=== PATIENT | male | born 1970 | race Caucasian/White ===

== ENCOUNTER 2016-11-08 01:51 | Emergency (ER) | payer OTHER ==
[~2016-11-08] VITALS: Ht 175.3 cm; Wt 80.0 kg
[~2016-11-08 01:51] MED LIST: AMLO10TA55 PO; ASPI-556 PO; ASPI81 PO; AUD NEB; CLON.1 PO; FOLI0.8T2 PO; HEPA500017 SQ; PANT40TA25 PO; PERCT PO
[2016-11-08 01:58] VITALS: BP 155/90
== END 2016-11-08 03:53 | disposition home or self-care (01) ==
LOC: EMS 01:53
DX: K94.00 Colostomy complication, unspecified (principal); I11.0 Hypertensive heart disease with heart failure; I50.9 Heart failure, unspecified; Z79.82 Long term (current) use of aspirin
CPT/HCPCS: 99281; 99284

== ENCOUNTER 2016-11-16 12:40 | Emergency (ER) | payer OTHER ==
[~2016-11-16] VITALS: Ht 167.6 cm; Wt 78.0 kg
[2016-11-16 15:13] VITALS: BP 102/56
== END 2016-11-16 15:43 | disposition home or self-care (01) ==
LOC: EMS 12:42
DX: Z93.3 Colostomy status (principal); I13.2 Hypertensive heart and chronic kidney disease with heart failure and with stage 5 chronic kidney disease, or end stage renal disease; N18.6 End stage renal disease; I50.9 Heart failure, unspecified; G83.14 Monoplegia of lower limb affecting left nondominant side; Z99.2 Dependence on renal dialysis; Z79.82 Long term (current) use of aspirin
CPT/HCPCS: 99281

== ENCOUNTER 2016-12-12 21:35 | Emergency (ER) | payer OTHER ==
[~2016-12-12] VITALS: Ht 175.3 cm; Wt 79.5 kg
[2016-12-12 22:48] VITALS: BP 144/95
== END 2016-12-12 23:28 | disposition home or self-care (01) ==
LOC: EMS 21:38
DX: K94.03 Colostomy malfunction (principal); I11.0 Hypertensive heart disease with heart failure; I50.9 Heart failure, unspecified; Z79.82 Long term (current) use of aspirin
CPT/HCPCS: 99281

== ENCOUNTER 2017-01-12 23:28 | Emergency (ER) | payer OTHER ==
[~2017-01-12] VITALS: Ht 175.3 cm; Wt 79.5 kg
[2017-01-13 00:39] VITALS: BP 159/83
== END 2017-01-13 00:41 | disposition home or self-care (01) ==
LOC: EMS 23:30
DX: K94.00 Colostomy complication, unspecified (principal); I11.0 Hypertensive heart disease with heart failure; I50.9 Heart failure, unspecified; Z79.82 Long term (current) use of aspirin
CPT/HCPCS: 99281

== ENCOUNTER 2017-01-15 09:24 | Emergency (ER) | payer OTHER ==
[~2017-01-15] VITALS: Ht 175.3 cm; Wt 79.5 kg
[2017-01-15 09:32] VITALS: BP 117/76
== END 2017-01-15 11:01 | disposition left against medical advice (07) ==
LOC: EMS 09:25
DX: R10.9 Unspecified abdominal pain (principal); Z53.21 Procedure and treatment not carried out due to patient leaving prior to being seen by health care provider

== ENCOUNTER 2017-01-26 19:35 | Emergency (ER) | payer OTHER ==
[~2017-01-26] VITALS: Ht 175.3 cm; Wt 81.8 kg
[2017-01-26 21:16] VITALS: BP 128/100
== END 2017-01-26 21:27 | disposition home or self-care (01) ==
LOC: EMS 19:37
DX: Z93.3 Colostomy status (principal); I13.2 Hypertensive heart and chronic kidney disease with heart failure and with stage 5 chronic kidney disease, or end stage renal disease; N18.6 End stage renal disease; I50.9 Heart failure, unspecified; Z99.2 Dependence on renal dialysis; Z79.82 Long term (current) use of aspirin
CPT/HCPCS: 99281; 99284

== ENCOUNTER 2017-02-04 16:44 | Emergency (ER) | payer OTHER ==
[~2017-02-04] VITALS: Ht 175.3 cm; Wt 83.0 kg
[2017-02-04 18:01] VITALS: BP 149/66
== END 2017-02-04 18:06 | disposition home or self-care (01) ==
LOC: EMS 16:49
DX: Z93.3 Colostomy status (principal); Z43.2 Encounter for attention to ileostomy; I11.0 Hypertensive heart disease with heart failure; I50.9 Heart failure, unspecified; Z79.82 Long term (current) use of aspirin
CPT/HCPCS: 99281

== ENCOUNTER 2017-02-28 22:26 | Emergency (ER) | payer OTHER ==
[~2017-02-28] VITALS: Ht 175.3 cm; Wt 79.5 kg
[~2017-02-28 22:26] MED LIST changes: -ASPI81 PO
[2017-02-28 23:36] VITALS: BP 159/103
== END 2017-03-01 01:08 | disposition left against medical advice (07) ==
LOC: EMS 22:28
DX: Z93.3 Colostomy status (principal); F17.210 Nicotine dependence, cigarettes, uncomplicated; I13.2 Hypertensive heart and chronic kidney disease with heart failure and with stage 5 chronic kidney disease, or end stage renal disease; N18.6 End stage renal disease; I50.9 Heart failure, unspecified; F12.90 Cannabis use, unspecified, uncomplicated; Z99.2 Dependence on renal dialysis; Z53.21 Procedure and treatment not carried out due to patient leaving prior to being seen by health care provider

== ENCOUNTER 2017-06-06 11:54 | Emergency (ER) | payer OTHER ==
[~2017-06-06] VITALS: Ht 172.7 cm; Wt 69.0 kg
[~2017-06-06 11:54] MED LIST changes: +CLON-570 PO; -CLON.1 PO
[2017-06-06] MEDS ORDERED: CefTRIAXone SODIUM 1 GM/VIAL IM ONE (13:15)
[2017-06-06] MEDS ORDERED: LIDOCAINE HCL/PF 1% 2 ML VIAL IM ONE (13:15)
[2017-06-06] MEDS ORDERED: SILVER SULFADIAZINE 1% 25 GM CREAM TP ONE (13:15)
[2017-06-06 14:05] VITALS: BP 148/72
== END 2017-06-06 14:05 | disposition home or self-care (01) ==
LOC: EMS 12:08
DX: T24.201D Burn of second degree of unspecified site of right lower limb, except ankle and foot, subsequent encounter (principal); I13.2 Hypertensive heart and chronic kidney disease with heart failure and with stage 5 chronic kidney disease, or end stage renal disease; N18.6 End stage renal disease; I50.9 Heart failure, unspecified; L08.9 Local infection of the skin and subcutaneous tissue, unspecified; L03.115 Cellulitis of right lower limb; F12.90 Cannabis use, unspecified, uncomplicated; Z99.2 Dependence on renal dialysis; Z79.82 Long term (current) use of aspirin; X10.0XXD Contact with hot drinks, subsequent encounter
CPT/HCPCS: 16020; 96372; 99284; J0696; J3490; Z7610

== ENCOUNTER 2017-06-12 06:21 | Emergency (ER) | payer OTHER ==
[~2017-06-12] VITALS: Ht 175.3 cm; Wt 80.0 kg
[~2017-06-12 06:21] MED LIST changes: -AUD NEB; -HEPA500017 SQ
[2017-06-12] MEDS ORDERED: SILVER SULFADIAZINE 1% 25 GM CREAM TP ONE (07:30)
[2017-06-12] MEDS ORDERED: HYDROCODONE/ACETAMINOPHEN 5-325 MG TABLET PO ONE (07:45)
[2017-06-12 09:50] VITALS: BP 140/92
== END 2017-06-12 09:53 | disposition home or self-care (01) ==
LOC: EMS 06:23
DX: Z48.00 Encounter for change or removal of nonsurgical wound dressing (principal); I13.2 Hypertensive heart and chronic kidney disease with heart failure and with stage 5 chronic kidney disease, or end stage renal disease; N18.6 End stage renal disease; F12.10 Cannabis abuse, uncomplicated; I50.9 Heart failure, unspecified; Z99.2 Dependence on renal dialysis
CPT/HCPCS: 73562; 99284; Z7610

== ENCOUNTER 2017-06-19 02:09 | Emergency (ER) | payer OTHER ==
[~2017-06-19] VITALS: Ht 175.3 cm; Wt 79.5 kg
[2017-06-19] MEDS ORDERED: SODIUM CHLORIDE 0.9% 250 ML IRRIG SOLUTION BOTTLE IRRIG ONE (02:45)
[2017-06-19] MEDS ORDERED: SILVER SULFADIAZINE 1% 25 GM CREAM TP ONE (02:45)
[2017-06-19] MEDS ORDERED: CLINDAMYCIN HCL 150 MG CAPSULE PO ONE (02:45)
[2017-06-19] MEDS ORDERED: POVIDONE-IODINE 10% 15 ML SOLUTION UD TP ONE (03:00)
[2017-06-19 03:12] VITALS: BP 146/91
== END 2017-06-19 04:31 | disposition home or self-care (01) ==
LOC: EMS 02:10
DX: T24.001D Burn of unspecified degree of unspecified site of right lower limb, except ankle and foot, subsequent encounter (principal); I13.2 Hypertensive heart and chronic kidney disease with heart failure and with stage 5 chronic kidney disease, or end stage renal disease; N18.6 End stage renal disease; I50.9 Heart failure, unspecified; F12.90 Cannabis use, unspecified, uncomplicated; Z99.2 Dependence on renal dialysis; Z79.82 Long term (current) use of aspirin; X08.8XXD Exposure to other specified smoke, fire and flames, subsequent encounter
CPT/HCPCS: 99284; Z7610

== ENCOUNTER 2017-06-28 16:49 | Inpatient (IN) | payer OTHER ==
[~2017-06-28] VITALS: Ht 175.3 cm; Wt 85.2 kg
[2017-06-28 19:14] LABS: BASOPHILS # (AUTO) 0.05 K/uL (0.00-0.20); BASOPHILS % (AUTO) 0.9 % (0.0-2.0); EOSINOPHILS # (AUTO) 0.05 K/uL (0.00-0.70); EOSINOPHILS % (AUTO) 0.72 % (1.0-6.0); HEMATOCRIT 45.8 % (41-53); HEMOGLOBIN 14.8 g/dL (13.5-17.5); LYMPHOCYTES # (AUTO) 0.7 K/uL (1.0-4.8); LYMPHOCYTES % (AUTO) 10.9 % (22.0-44.0); MEAN CORPUSCULAR HEMOGLOBIN 28.6 pg (26.0-34.0); MEAN CORPUSCULAR HGB CONC 32.2 G/dL (31.0-37.0); MEAN CORPUSCULAR VOLUME 89 fL (80-100); MONOCYTES # (AUTO) 0.6 K/uL (0.1-1.0); MONOCYTES % (AUTO) 9.4 % (2.0-9.0); NEUTROPHILS # (AUTO) 4.9 K/uL (1.8-7.7); NEUTROPHILS % (AUTO) 78.1 % (40.0-70.0); PLATELET COUNT (AUTO) 185 K/uL (150-450); RED BLOOD CELL COUNT(AUTO) 5.15 MIL/uL (4.50-5.90); RED CELL DISTRIBUTION WIDTH 23.2 % (11.5-14.5); WHITE BLOOD COUNT (AUTO) 6.3 K/uL (4.5-11.0)
[2017-06-28] MEDS ORDERED: HYDROmorphone 2 MG/ML SYRINGE IVP ONE (19:15)
[2017-06-28] MEDS ORDERED: ONDANSETRON HCL 4 MG/2 ML VIAL IVP ONE (19:15)
[2017-06-28] MEDS ORDERED: DiphenhydrAMINE HCL 50 MG/ML VIAL IVP ONE (19:15)
[2017-06-28 20:02] LABS: ANION GAP 16 mmol/L (8-16); CALCIUM, TOTAL 8.9 mg/dL (8.8-10.5); CARBON DIOXIDE 25 mmol/L (22-29); CHLORIDE 92 mmol/L (98-107); CREATININE 8.17 mg/dL (0.60-1.30); GLOMERULAR FILTR. RATE CALC 7 mL/min (>60); POTASSIUM 4.7 mmol/L (3.5-5.1); SODIUM SERUM 133 mmol/L (136-145); UREA NITROGEN, BLOOD 63 mg/dL (7-18)
[2017-06-28 20:07] LABS: ALBUMIN 3.1 g/dL (3.4-5.0); ASPARTATE AMINOTRANSFERASE 19 U/L (15-37); BILIRUBIN,TOTAL 1.3 mg/dL (0.1-1.0); TOTAL PROTEIN, SERUM 8.4 g/dL (6.4-8.2)
[2017-06-28] MEDS ORDERED: VANCOMYCIN HCL 1 GM/D5% WATER 200 ML IV ONE (20:15)
[2017-06-28 20:20] LABS: B-TYPE NATRIURETIC PEPTIDE > 5000 pg/mL (0-100)
[2017-06-28 20:22] LABS: ALANINE AMINOTRANSFERASE 17 U/L (12-78)
[2017-06-28] MEDS ORDERED: BISACODYL 10 MG RECTAL RECTAL SUPPOSITORY PR PRN (21:00)
[2017-06-28] MEDS ORDERED: ALBUTEROL SULFATE 2.5 MG/0.5 ML NEB SOLUTION NEB PRN (21:00)
[2017-06-28] MEDS ORDERED: ACETAMINOPHEN 325 MG TABLET PO PRN (21:00)
[2017-06-28] MEDS ORDERED: INSULIN ASPART 100 UNITS/ML SQ PRN (21:15)
[2017-06-28] MEDS ORDERED: DEXTROSE 50%-WATER 25 GM/50 ML SYRINGE IVP PRN (21:15)
[2017-06-28 22:09] LABS: RBC MORPHOLOGY COMMENT ABNORMAL RBC MORPH
[2017-06-28 22:10] VITALS: BP 163/101
[2017-06-28] MEDS: DOCUSATE SODIUM 100 MG CAPSULE PO SCH (22:42)
[2017-06-28] MEDS: HEPARIN SODIUM,PORCINE 5,000 UNITS/ML VIAL SQ SCH (22:51)
[2017-06-28] MEDS: OxyCODONE HCL/ACETAMINOPHEN 5-325 MG TABLET PO PRN (23:33)
[2017-06-29] MEDS: ONDANSETRON HCL 4 MG/2 ML VIAL IVP PRN ×2 (00:20→09:46)
[2017-06-29 04:45] VITALS: BP 159/115
[2017-06-29 05:40] VITALS: BP 159/102
[2017-06-29] MEDS: AmLODIPine BESYLATE 10 MG TABLET PO SCH ×2 (05:44→09:29)
[2017-06-29] MEDS: OxyCODONE HCL/ACETAMINOPHEN 5-325 MG TABLET PO PRN (05:45)
[2017-06-29 08:10] VITALS: BP 143/106
[2017-06-29] MEDS: DOCUSATE SODIUM 100 MG CAPSULE PO SCH ×2 (09:00→20:13)
[2017-06-29] MEDS: ASPIRIN 81 MG CHEWABLE TABLET PO SCH ×2 (09:00→09:30)
[2017-06-29] MEDS: VITAMIN B COMP/VIT C/FOLIC ACID CAPSULE PO SCH (09:29)
[2017-06-29] MEDS: PANTOPRAZOLE SODIUM 40 MG DR TABLET PO SCH (09:29)
[2017-06-29] MEDS: HEPARIN SODIUM,PORCINE 5,000 UNITS/ML VIAL SQ SCH ×2 (09:30→20:13)
[2017-06-29] MEDS: DiphenhydrAMINE HCL 25 MG CAPSULE PO PRN (09:33)
[2017-06-29 11:28] LABS: GLUCOSE,POINT OF CARE 112 MG/DL (70-110)
[2017-06-29 11:28] LABS: GLUCOSE,POINT OF CARE 104 MG/DL (70-110)
[2017-06-29] MEDS ORDERED: VITAMIN B COMP/VIT C/FOLIC ACID CAPSULE PO SCH (11:45)
[2017-06-29 12:08] VITALS: BP 159/100
[2017-06-29] MEDS: SEVELAMER CARBONATE 800 MG TABLET PO SCH ×2 (12:43→17:39)
[2017-06-29] MEDS: SILVER SULFADIAZINE 1% 25 GM CREAM TP SCH (12:44)
[2017-06-29] MEDS ORDERED: SODIUM CHLORIDE 0.9% 2,000 ML IV ONE (13:05)
[2017-06-29] MEDS ORDERED: MANNITOL 25%-12.5 GM/50 ML VIAL IVP PRN (14:45)
[2017-06-29] MEDS ORDERED: ALBUMIN HUMAN 25%-12.5GM/50ML IV BOTTLE IV PRN (14:45)
[2017-06-29] MEDS ORDERED: LIDOCAINE HCL/PF 1% 2 ML VIAL ID PRN (14:45)
[2017-06-29] MEDS ORDERED: DiphenhydrAMINE HCL 50 MG/ML VIAL IVP PRN (14:45)
[2017-06-29] MEDS ORDERED: DiphenhydrAMINE HCL 50 MG/ML VIAL IM ONE (16:37)
[2017-06-29] MEDS ORDERED: LIDOCAINE HCL/PF 1% 2 ML VIAL IM ONE (16:37)
[2017-06-29] MEDS: CINACALCET HCL 30 MG TABLET PO SCH (17:39)
[2017-06-29 19:32] VITALS: BP 136/82
[2017-06-29 23:37] VITALS: BP 146/106
[2017-06-30 05:08] VITALS: BP 131/102
[2017-06-30 07:53] VITALS: BP 136/99
[2017-06-30] MEDS: PANTOPRAZOLE SODIUM 40 MG DR TABLET PO SCH (07:54)
[2017-06-30] MEDS: ASPIRIN 81 MG CHEWABLE TABLET PO SCH ×2 (07:54→07:57)
[2017-06-30] MEDS: VITAMIN B COMP/VIT C/FOLIC ACID CAPSULE PO SCH (07:54)
[2017-06-30] MEDS: AmLODIPine BESYLATE 10 MG TABLET PO SCH (07:54)
[2017-06-30] MEDS: HEPARIN SODIUM,PORCINE 5,000 UNITS/ML VIAL SQ SCH ×2 (07:55→20:07)
[2017-06-30] MEDS: DOCUSATE SODIUM 100 MG CAPSULE PO SCH ×2 (07:56→20:07)
[2017-06-30] MEDS: SEVELAMER CARBONATE 800 MG TABLET PO SCH ×3 (07:56→17:43)
[2017-06-30] MEDS: SILVER SULFADIAZINE 1% 25 GM CREAM TP SCH (07:57)
[2017-06-30 11:38] VITALS: BP 157/100
[2017-06-30] MEDS ORDERED: CefTRIAXone 1 GM/DEXTROSE 50 ML IV SCH (14:00)
[2017-06-30] MEDS: DiphenhydrAMINE HCL 25 MG CAPSULE PO PRN (15:04)
[2017-06-30] MEDS: OxyCODONE HCL/ACETAMINOPHEN 5-325 MG TABLET PO PRN ×2 (15:04→21:05)
[2017-06-30 15:46] VITALS: BP 144/84
[2017-06-30] MEDS: CINACALCET HCL 30 MG TABLET PO SCH (17:42)
[2017-06-30 19:23] VITALS: BP 132/87
[2017-06-30] MEDS: DiphenhydrAMINE HCL 50 MG/ML VIAL IM PRN (21:03)
[2017-06-30 23:03] VITALS: BP 165/93
[2017-07-01] MEDS: DiphenhydrAMINE HCL 50 MG/ML VIAL IM PRN ×3 (03:43→16:48)
[2017-07-01 04:41] VITALS: BP 141/97
[2017-07-01 07:18] VITALS: BP 144/83
[2017-07-01 07:54] LABS: BASOPHILS # (AUTO) 0.02 K/uL (0.00-0.20); BASOPHILS % (AUTO) 0.4 % (0.0-2.0); EOSINOPHILS # (AUTO) 0.09 K/uL (0.00-0.70); EOSINOPHILS % (AUTO) 1.93 % (1.0-6.0); HEMATOCRIT 49.9 % (41-53); HEMOGLOBIN 15.7 g/dL (13.5-17.5); LYMPHOCYTES # (AUTO) 0.9 K/uL (1.0-4.8); LYMPHOCYTES % (AUTO) 18.1 % (22.0-44.0); MEAN CORPUSCULAR HGB CONC 31.4 G/dL (31.0-37.0); MEAN CORPUSCULAR VOLUME 92 fL (80-100); MONOCYTES # (AUTO) 0.7 K/uL (0.1-1.0); MONOCYTES % (AUTO) 15.5 % (2.0-9.0); PLATELET COUNT (AUTO) 176 K/uL (150-450); RED CELL DISTRIBUTION WIDTH 23.1 % (11.5-14.5); WHITE BLOOD COUNT (AUTO) 4.7 K/uL (4.5-11.0)
[2017-07-01 07:56] LABS: CALCIUM, TOTAL 7.9 mg/dL (8.8-10.5); CREATININE 8.13 mg/dL (0.60-1.30); POTASSIUM 5.3 mmol/L (3.5-5.1)
[2017-07-01] MEDS: SEVELAMER CARBONATE 800 MG TABLET PO SCH ×3 (08:01→18:03)
[2017-07-01] MEDS: AmLODIPine BESYLATE 10 MG TABLET PO SCH (08:02)
[2017-07-01] MEDS: VITAMIN B COMP/VIT C/FOLIC ACID CAPSULE PO SCH (08:02)
[2017-07-01] MEDS: PANTOPRAZOLE SODIUM 40 MG DR TABLET PO SCH (08:02)
[2017-07-01] MEDS: DOCUSATE SODIUM 100 MG CAPSULE PO SCH ×2 (08:02→22:43)
[2017-07-01] MEDS: ASPIRIN 81 MG CHEWABLE TABLET PO SCH ×2 (08:02→08:03)
[2017-07-01] MEDS: SILVER SULFADIAZINE 1% 25 GM CREAM TP SCH (08:03)
[2017-07-01] MEDS: HEPARIN SODIUM,PORCINE 5,000 UNITS/ML VIAL SQ SCH ×2 (08:03→22:43)
[2017-07-01 08:25] LABS: RBC MORPHOLOGY COMMENT ABNORMAL RBC MORPH
[2017-07-01 11:40] VITALS: BP 152/99
[2017-07-01] MEDS ORDERED: LIDOCAINE HCL/PF 1% 2 ML VIAL INJ ONE (12:00)
[2017-07-01] MEDS ORDERED: LEVOFLOXACIN 500 MG/D5% WATER 100 ML IV SCH (15:00)
[2017-07-01 15:42] VITALS: BP 152/92
[2017-07-01] MEDS ORDERED: VANCOMYCIN HCL 1.5 GM in DEXTROSE 5%-WATER 250 ML IV ONE (16:00)
[2017-07-01] MEDS ORDERED: VANCOMYCIN HCL 1 GM/D5% WATER 200 ML IV PRN (16:00)
[2017-07-01] MEDS: OxyCODONE HCL/ACETAMINOPHEN 5-325 MG TABLET PO PRN (16:48)
[2017-07-01] MEDS: CINACALCET HCL 30 MG TABLET PO SCH (18:03)
[2017-07-01] MEDS ORDERED: ALBUMIN HUMAN 25%-12.5GM/50ML IV BOTTLE IV PRN (19:00)
[2017-07-01] MEDS ORDERED: MANNITOL 25%-12.5 GM/50 ML VIAL IVP PRN (19:00)
[2017-07-01] MEDS ORDERED: LIDOCAINE HCL/PF 1% 2 ML VIAL ID PRN (19:00)
[2017-07-01 19:38] VITALS: BP 161/103
[2017-07-01] MEDS: DiphenhydrAMINE HCL 50 MG/ML VIAL IVP PRN (22:50)
[2017-07-01 23:42] VITALS: BP 157/92
[2017-07-02] MEDS: OxyCODONE HCL/ACETAMINOPHEN 5-325 MG TABLET PO PRN ×3 (00:26→09:55)
[2017-07-02 04:54] VITALS: BP 140/98
[2017-07-02] MEDS: DiphenhydrAMINE HCL 50 MG/ML VIAL IVP PRN ×2 (06:56→13:31)
[2017-07-02 08:01] VITALS: BP 145/104
[2017-07-02] MEDS: SEVELAMER CARBONATE 800 MG TABLET PO SCH ×3 (08:21→17:54)
[2017-07-02] MEDS: VITAMIN B COMP/VIT C/FOLIC ACID CAPSULE PO SCH (08:22)
[2017-07-02] MEDS: ASPIRIN 81 MG CHEWABLE TABLET PO SCH (08:22)
[2017-07-02] MEDS: AmLODIPine BESYLATE 10 MG TABLET PO SCH (08:22)
[2017-07-02] MEDS: PANTOPRAZOLE SODIUM 40 MG DR TABLET PO SCH (08:22)
[2017-07-02] MEDS: DOCUSATE SODIUM 100 MG CAPSULE PO SCH ×2 (08:22→20:12)
[2017-07-02] MEDS: HEPARIN SODIUM,PORCINE 5,000 UNITS/ML VIAL SQ SCH ×2 (08:23→20:12)
[2017-07-02] MEDS: SILVER SULFADIAZINE 1% 25 GM CREAM TP SCH (08:35)
[2017-07-02] MEDS ORDERED: DiphenhydrAMINE HCL 50 MG/ML VIAL IVP ONE (12:00)
[2017-07-02] MEDS: LEVOFLOXACIN 250 MG/D5% WATER 50 ML IV SCH (15:23)
[2017-07-02 16:18] VITALS: BP 155/78
[2017-07-02] MEDS: DiphenhydrAMINE HCL 50 MG/ML VIAL IM PRN ×2 (17:39→23:32)
[2017-07-02] MEDS: CINACALCET HCL 30 MG TABLET PO SCH (17:54)
[2017-07-02 19:52] VITALS: BP 125/83
[2017-07-02 23:49] VITALS: BP 140/87
[2017-07-03 04:02] VITALS: BP 129/95
[2017-07-03] MEDS: OxyCODONE HCL/ACETAMINOPHEN 5-325 MG TABLET PO PRN (06:22)
[2017-07-03] MEDS: DiphenhydrAMINE HCL 50 MG/ML VIAL IM PRN (06:22)
[2017-07-03 06:48] LABS: GLUCOSE,POINT OF CARE 111 MG/DL (70-110)
[2017-07-03 06:49] LABS: GLUCOSE,POINT OF CARE 100 MG/DL (70-110)
[2017-07-03 07:33] VITALS: BP 142/100
[2017-07-03] MEDS: SEVELAMER CARBONATE 800 MG TABLET PO SCH ×3 (08:21→17:41)
[2017-07-03] MEDS: PANTOPRAZOLE SODIUM 40 MG DR TABLET PO SCH (08:22)
[2017-07-03] MEDS: AmLODIPine BESYLATE 10 MG TABLET PO SCH (08:22)
[2017-07-03] MEDS: ASPIRIN 81 MG CHEWABLE TABLET PO SCH (08:22)
[2017-07-03] MEDS: DOCUSATE SODIUM 100 MG CAPSULE PO SCH ×2 (08:22→20:52)
[2017-07-03] MEDS: VITAMIN B COMP/VIT C/FOLIC ACID CAPSULE PO SCH (08:22)
[2017-07-03] MEDS: HEPARIN SODIUM,PORCINE 5,000 UNITS/ML VIAL SQ SCH ×2 (08:23→20:53)
[2017-07-03] MEDS: SILVER SULFADIAZINE 1% 25 GM CREAM TP SCH (08:23)
[2017-07-03 11:30] VITALS: BP 151/103
[2017-07-03] MEDS ORDERED: SODIUM CHLORIDE 0.9% 1,000 ML IV ONE ×2 (12:43)
[2017-07-03] MEDS: LEVOFLOXACIN 250 MG/D5% WATER 50 ML IV SCH (15:57)
[2017-07-03] MEDS ORDERED: DiphenhydrAMINE HCL 25 MG CAPSULE PO PRN (16:30)
[2017-07-03] MEDS ORDERED: LIDOCAINE HCL/PF 1% 2 ML VIAL IM ONE (17:17)
[2017-07-03] MEDS ORDERED: DiphenhydrAMINE HCL 50 MG/ML VIAL IVP ONE (17:17)
[2017-07-03] MEDS: CINACALCET HCL 30 MG TABLET PO SCH (17:40)
[2017-07-03 19:38] VITALS: BP 162/94
[2017-07-03] MEDS ORDERED: CeFAZolin 2 GM/DEXTROSE 50 ML IV PRN (21:45)
[2017-07-03] MEDS ORDERED: CeFAZolin 2 GM/DEXTROSE 50 ML IV ONE (22:00)
[2017-07-03 23:43] VITALS: BP 145/91
[2017-07-04] MEDS ORDERED: ONDANSETRON HCL 4 MG/2 ML VIAL IVP PRN (01:45)
[2017-07-04] MEDS: OxyCODONE HCL/ACETAMINOPHEN 5-325 MG TABLET PO PRN ×2 (03:27→07:54)
[2017-07-04 04:57] VITALS: BP 148/97
[2017-07-04 07:25] VITALS: BP 144/95
[2017-07-04] MEDS: SEVELAMER CARBONATE 800 MG TABLET PO SCH ×2 (07:53→12:20)
[2017-07-04] MEDS: VITAMIN B COMP/VIT C/FOLIC ACID CAPSULE PO SCH (07:54)
[2017-07-04] MEDS: DOCUSATE SODIUM 100 MG CAPSULE PO SCH (07:54)
[2017-07-04] MEDS: AmLODIPine BESYLATE 10 MG TABLET PO SCH (07:54)
[2017-07-04] MEDS: PANTOPRAZOLE SODIUM 40 MG DR TABLET PO SCH (07:54)
[2017-07-04] MEDS: HEPARIN SODIUM,PORCINE 5,000 UNITS/ML VIAL SQ SCH (07:54)
[2017-07-04] MEDS: SILVER SULFADIAZINE 1% 25 GM CREAM TP SCH (07:55)
[2017-07-04] MEDS: ASPIRIN 81 MG CHEWABLE TABLET PO SCH (07:56)
[2017-07-04] MEDS ORDERED: SODIUM CL IRRIG SOLN BOTTLE 250 ML IRRIG ONE (10:07)
[2017-07-04 11:44] VITALS: BP 143/92
[2017-07-05 11:18] LABS: GLUCOSE,POINT OF CARE 95 MG/DL (70-110)
[2017-07-06] MEDS ORDERED: CeFAZolin 2 GM/DEXTROSE 50 ML IV PRN (06:00)
[2017-07-06] MEDS ORDERED: -POST HEMODIALYSIS NOTE- MISC SCH (09:00)
== END 2017-07-04 15:05 | disposition home or self-care (01) | DRG 383 ==
LOC: EMS 16:52 → 6N 20:57
PROVIDERS: ADMIT Internal Medicine; ATTEND Internal Medicine
PROC: 5A1D70Z Performance of Urinary Filtration, Intermittent, Less than 6 Hours Per Day (ICD-10-PCS; principal; 2017-06-29)
PROC: 5A1D70Z Performance of Urinary Filtration, Intermittent, Less than 6 Hours Per Day (ICD-10-PCS; 2017-07-01)
DX: L03.115 Cellulitis of right lower limb (principal); I13.2 Hypertensive heart and chronic kidney disease with heart failure and with stage 5 chronic kidney disease, or end stage renal disease; E44.0 Moderate protein-calorie malnutrition; N18.6 End stage renal disease; G82.20 Paraplegia, unspecified; R78.81 Bacteremia; B95.5 Unspecified streptococcus as the cause of diseases classified elsewhere; E21.3 Hyperparathyroidism, unspecified; B95.8 Unspecified staphylococcus as the cause of diseases classified elsewhere; B96.5 Pseudomonas (aeruginosa) (mallei) (pseudomallei) as the cause of diseases classified elsewhere; I50.20 Unspecified systolic (congestive) heart failure; G89.29 Other chronic pain; Z99.2 Dependence on renal dialysis; Z93.3 Colostomy status; Z79.82 Long term (current) use of aspirin; Z79.899 Other long term (current) drug therapy; Z90.49 Acquired absence of other specified parts of digestive tract; Z91.19 Patient's noncompliance with other medical treatment and regimen; Z59.0 Homelessness; Z91.15 Patient's noncompliance with renal dialysis; Z76.5 Malingerer [conscious simulation]; Z68.27 Body mass index [BMI] 27.0-27.9, adult
CPT/HCPCS: 82962; 83605; 87040; 87070; 87081; 87147; 87205; 87340; 90935; 96374; 96375; 99285; J0690; J0696; J1170; J1200; J1644; J1956; J2405; J3370; J3490; J7030; J7060

== ENCOUNTER 2017-07-11 10:27 | Emergency (ER) | payer OTHER ==
[~2017-07-11] VITALS: Ht 170.2 cm; Wt 81.8 kg
[~2017-07-11 10:27] MED LIST changes: -AMLO10TA55 PO; -CLON-570 PO; -PERCT PO
[2017-07-11] MEDS ORDERED: BACITRACIN 0.9 GM PACKET OINTMENT TP ONE (11:15)
[2017-07-11] MEDS ORDERED: HYDROCODONE/ACETAMINOPHEN 5-325 MG TABLET PO ONE (11:15)
[2017-07-11 12:01] VITALS: BP 134/86
== END 2017-07-11 12:02 | disposition home or self-care (01) ==
LOC: EMS 10:28
DX: Z48.00 Encounter for change or removal of nonsurgical wound dressing (principal); S81.801D Unspecified open wound, right lower leg, subsequent encounter; I13.2 Hypertensive heart and chronic kidney disease with heart failure and with stage 5 chronic kidney disease, or end stage renal disease; N18.6 End stage renal disease; I50.9 Heart failure, unspecified; F17.210 Nicotine dependence, cigarettes, uncomplicated; F12.90 Cannabis use, unspecified, uncomplicated; Z91.018 Allergy to other foods; Z79.82 Long term (current) use of aspirin; Z99.2 Dependence on renal dialysis; X58.XXXD Exposure to other specified factors, subsequent encounter
CPT/HCPCS: 99283

== ENCOUNTER 2017-08-24 22:24 | Emergency (ER) | payer OTHER ==
[~2017-08-24] VITALS: Ht 175.3 cm; Wt 81.0 kg
[2017-08-24] MEDS ORDERED: SODIUM CHLORIDE 0.9% 250 ML IV ONE (23:45)
[2017-08-24] MEDS ORDERED: PROCHLORPERAZINE EDISYLATE 5 MG/ML 2 ML VIAL IVP ONE (23:45)
[2017-08-24] MEDS ORDERED: MORPHINE SULFATE 4 MG/ML SYRINGE IVP ONE (23:45)
[2017-08-24 23:55] LABS: EOSINOPHILS # (AUTO) 0.04 K/uL (0.00-0.70); EOSINOPHILS % (AUTO) 0.48 % (1.0-6.0); HEMATOCRIT 49.3 % (41-53); HEMOGLOBIN 15.9 g/dL (13.5-17.5); LYMPHOCYTES # (AUTO) 0.9 K/uL (1.0-4.8); LYMPHOCYTES % (AUTO) 11.4 % (22.0-44.0); MEAN CORPUSCULAR HGB CONC 32.2 G/dL (31.0-37.0); MEAN CORPUSCULAR VOLUME 93 fL (80-100); MONOCYTES # (AUTO) 0.8 K/uL (0.1-1.0); MONOCYTES % (AUTO) 10.7 % (2.0-9.0); NEUTROPHILS # (AUTO) 5.9 K/uL (1.8-7.7); NEUTROPHILS % (AUTO) 77.3 % (40.0-70.0); PLATELET COUNT (AUTO) 163 K/uL (150-450); RED BLOOD CELL COUNT(AUTO) 5.29 MIL/uL (4.50-5.90); RED CELL DISTRIBUTION WIDTH 21.6 % (11.5-14.5); WHITE BLOOD COUNT (AUTO) 7.7 K/uL (4.5-11.0)
[2017-08-25 00:12] LABS: CALCIUM, TOTAL 9.5 mg/dL (8.8-10.5); CREATININE 8.17 mg/dL (0.60-1.30); POTASSIUM 4.9 mmol/L (3.5-5.1)
[2017-08-25 00:18] LABS: ALBUMIN 3.2 g/dL (3.4-5.0); BILIRUBIN,TOTAL 2.4 mg/dL (0.1-1.0); TOTAL PROTEIN, SERUM 8.8 g/dL (6.4-8.2)
[2017-08-25 01:43] LABS: REFLEX LACTIC ACID? YES YES
[2017-08-25 03:03] VITALS: BP 135/79
[2017-08-25] MEDS ORDERED: BACITRACIN 0.9 GM PACKET OINTMENT TP ONE ×2 (03:30→03:45)
== END 2017-08-25 04:20 | disposition home or self-care (01) ==
LOC: EMS 22:26
DX: I13.2 Hypertensive heart and chronic kidney disease with heart failure and with stage 5 chronic kidney disease, or end stage renal disease (principal); N18.6 End stage renal disease; I50.9 Heart failure, unspecified; R42 Dizziness and giddiness; R55 Syncope and collapse; F17.210 Nicotine dependence, cigarettes, uncomplicated; F12.90 Cannabis use, unspecified, uncomplicated; Z91.018 Allergy to other foods; Z99.2 Dependence on renal dialysis
CPT/HCPCS: 36415; 71010; 80053; 83605; 83690; 85025; 87040; 96361; 96374; 96375; 99285; J0780; J2270; J7050

== ENCOUNTER 2017-09-05 16:29 | Emergency (ER) | payer OTHER ==
[~2017-09-05] VITALS: Ht 175.3 cm; Wt 84.1 kg
[2017-09-05 16:50] VITALS: BP 141/98
== END 2017-09-05 17:25 | disposition home or self-care (01) ==
LOC: EMS 16:31
DX: Z43.3 Encounter for attention to colostomy (principal); I13.2 Hypertensive heart and chronic kidney disease with heart failure and with stage 5 chronic kidney disease, or end stage renal disease; N18.6 End stage renal disease; I50.9 Heart failure, unspecified; G82.20 Paraplegia, unspecified; F12.90 Cannabis use, unspecified, uncomplicated; F17.210 Nicotine dependence, cigarettes, uncomplicated; Z93.3 Colostomy status; Z99.2 Dependence on renal dialysis; Z91.018 Allergy to other foods
CPT/HCPCS: 99284

== ENCOUNTER 2017-09-16 19:30 | Emergency (ER) | payer OTHER ==
[~2017-09-16] VITALS: Ht 170.2 cm; Wt 84.1 kg
[2017-09-16 20:35] VITALS: BP 149/97
[2017-09-16] MEDS ORDERED: HYDROCODONE/ACETAMINOPHEN 5-325 MG TABLET PO ONE (21:30)
== END 2017-09-16 22:10 | disposition home or self-care (01) ==
LOC: EMS 19:33
DX: K94.03 Colostomy malfunction (principal); I13.2 Hypertensive heart and chronic kidney disease with heart failure and with stage 5 chronic kidney disease, or end stage renal disease; N18.6 End stage renal disease; I50.9 Heart failure, unspecified; F17.210 Nicotine dependence, cigarettes, uncomplicated; F12.90 Cannabis use, unspecified, uncomplicated; Z99.2 Dependence on renal dialysis; Z93.3 Colostomy status; Z91.018 Allergy to other foods; Z79.82 Long term (current) use of aspirin
CPT/HCPCS: 99284

== ENCOUNTER 2017-09-17 19:17 | Emergency (ER) | payer OTHER ==
[~2017-09-17] VITALS: Ht 175.3 cm; Wt 95.5 kg
[2017-09-17 20:29] LABS: BASOPHILS % (AUTO) 1.4 % (0.0-2.0); EOSINOPHILS % (AUTO) 1.2 % (1.0-6.0); HEMATOCRIT 41.2 % (41-53); HEMOGLOBIN 13.4 g/dL (13.5-17.5); LYMPHOCYTES # (AUTO) 1.1 K/uL (1.0-4.8); LYMPHOCYTES % (AUTO) 16.1 % (22.0-44.0); MEAN CORPUSCULAR HEMOGLOBIN 29.7 pg (26.0-34.0); MEAN CORPUSCULAR HGB CONC 32.4 G/dL (31.0-37.0); MEAN CORPUSCULAR VOLUME 92 fL (80-100); MONOCYTES # (AUTO) 0.7 K/uL (0.1-1.0); MONOCYTES % (AUTO) 9.9 % (2.0-9.0); NEUTROPHILS # (AUTO) 4.8 K/uL (1.8-7.7); NEUTROPHILS % (AUTO) 71.4 % (40.0-70.0); PLATELET COUNT (AUTO) 246 K/uL (150-450); RED BLOOD CELL COUNT(AUTO) 4.49 MIL/uL (4.50-5.90)
[2017-09-17 20:53] LABS: INR 1.3 (0.9-1.1); PROTHROMBIN TIME 13.2 SEC (9.4-11.6)
[2017-09-17 20:57] LABS: CALCIUM, TOTAL 8.8 mg/dL (8.8-10.5); CREATININE 7.28 mg/dL (0.60-1.30); POTASSIUM 4.2 mmol/L (3.5-5.1)
[2017-09-17 20:58] LABS: ALBUMIN 2.8 g/dL (3.4-5.0); BILIRUBIN,TOTAL 1.5 mg/dL (0.1-1.0); TOTAL PROTEIN, SERUM 8.2 g/dL (6.4-8.2)
[2017-09-17 21:01] LABS: LACTIC ACID 1.1 mmol/L (0.4-2.0)
[2017-09-18 00:48] VITALS: BP 145/89
== END 2017-09-18 00:48 | disposition home or self-care (01) ==
LOC: EMS 19:19
DX: L03.032 Cellulitis of left toe (principal); I13.2 Hypertensive heart and chronic kidney disease with heart failure and with stage 5 chronic kidney disease, or end stage renal disease; N18.6 End stage renal disease; I50.9 Heart failure, unspecified; F17.210 Nicotine dependence, cigarettes, uncomplicated; F12.90 Cannabis use, unspecified, uncomplicated; Z99.2 Dependence on renal dialysis; Z91.018 Allergy to other foods; Z79.82 Long term (current) use of aspirin
CPT/HCPCS: 83605; 99284

== ENCOUNTER 2017-09-20 17:33 | Inpatient (IN) | payer OTHER ==
[~2017-09-20] VITALS: Ht 175.3 cm; Wt 106.3 kg
[2017-09-20] MEDS ORDERED: 0.9% SODIUM CHLORIDE 10 ML SYRINGE IVP PRN (20:15)
[2017-09-20 20:27] LABS: BASOPHILS % (AUTO) 0.3 % (0.0-2.0); EOSINOPHILS % (AUTO) 0.5 % (1.0-6.0); HEMATOCRIT 45.8 % (41-53); HEMOGLOBIN 14.9 g/dL (13.5-17.5); LYMPHOCYTES # (AUTO) 0.8 K/uL (1.0-4.8); LYMPHOCYTES % (AUTO) 11.5 % (22.0-44.0); MEAN CORPUSCULAR HEMOGLOBIN 29.9 pg (26.0-34.0); MEAN CORPUSCULAR HGB CONC 32.4 G/dL (31.0-37.0); MEAN CORPUSCULAR VOLUME 92 fL (80-100); MONOCYTES # (AUTO) 0.7 K/uL (0.1-1.0); MONOCYTES % (AUTO) 10.1 % (2.0-9.0); NEUTROPHILS # (AUTO) 5.6 K/uL (1.8-7.7); NEUTROPHILS % (AUTO) 77.6 % (40.0-70.0); PLATELET COUNT (AUTO) 281 K/uL (150-450); RED BLOOD CELL COUNT(AUTO) 4.97 MIL/uL (4.50-5.90); RED CELL DISTRIBUTION WIDTH 20.6 % (11.5-14.5)
[2017-09-20 20:41] LABS: ALBUMIN 2.8 g/dL (3.4-5.0); BILIRUBIN,TOTAL 1.7 mg/dL (0.1-1.0); CALCIUM, TOTAL 9.1 mg/dL (8.8-10.5); CREATININE 9.49 mg/dL (0.60-1.30); TOTAL PROTEIN, SERUM 8.6 g/dL (6.4-8.2)
[2017-09-20 20:44] LABS: POTASSIUM 6.4 mmol/L (3.5-5.1)
[2017-09-20 20:47] LABS: LACTIC ACID 2.4 mmol/L (0.4-2.0)
[2017-09-20] MEDS ORDERED: DEXTROSE 50%-WATER 25 GM/50 ML SYRINGE IVP ONE (21:30)
[2017-09-20] MEDS ORDERED: INSULIN REGULAR, HUMAN 100 UNITS/ML IV ONE (21:30)
[2017-09-20] MEDS ORDERED: CALCIUM GLUCONATE 1,000 MG in DEXTROSE 5%-WATER 50 ML IV ONE (21:30)
[2017-09-20] MEDS ORDERED: SODIUM BICARBONATE [ADULT] 8.4% 50 MEQ/50 ML SYRINGE IVP ONE (21:30)
[2017-09-20] MEDS ORDERED: ONDANSETRON HCL 4 MG/2 ML VIAL IVP PRN (22:30)
[2017-09-20] MEDS ORDERED: ACETAMINOPHEN 325 MG TABLET PO PRN ×2 (22:30→22:45)
[2017-09-20] MEDS ORDERED: BISACODYL 10 MG RECTAL RECTAL SUPPOSITORY PR PRN (22:45)
[2017-09-20] MEDS ORDERED: MAGNESIUM HYDROXIDE SUSPENSION 30 ML UDCUP PO PRN (22:45)
[2017-09-20 23:04] VITALS: BP 134/85
[2017-09-21] MEDS: HEPARIN SODIUM,PORCINE 5,000 UNITS/ML VIAL SQ SCH ×4 (00:53→23:33)
[2017-09-21 05:30] VITALS: BP 148/76
[2017-09-21 07:55] VITALS: BP 92/50
[2017-09-21] MEDS: ASPIRIN 81 MG EC TABLET PO SCH (08:24)
[2017-09-21] MEDS: DOCUSATE SODIUM 100 MG CAPSULE PO SCH ×2 (08:24→21:11)
[2017-09-21] MEDS: VITAMIN B COMP/VIT C/FOLIC ACID CAPSULE PO SCH (08:24)
[2017-09-21] MEDS: PANTOPRAZOLE SODIUM 40 MG DR TABLET PO SCH (08:24)
[2017-09-21 09:58] LABS: CALCIUM, TOTAL 9.1 mg/dL (8.8-10.5); CREATININE 10.12 mg/dL (0.60-1.30)
[2017-09-21 10:19] LABS: BASOPHILS % (AUTO) 0.6 % (0.0-2.0); EOSINOPHILS % (AUTO) 0.1 % (1.0-6.0); HEMATOCRIT 43.8 % (41-53); HEMOGLOBIN 14.3 g/dL (13.5-17.5); LYMPHOCYTES # (AUTO) 0.7 K/uL (1.0-4.8); LYMPHOCYTES % (AUTO) 10.1 % (22.0-44.0); MEAN CORPUSCULAR HGB CONC 32.7 G/dL (31.0-37.0); MEAN CORPUSCULAR VOLUME 92 fL (80-100); MONOCYTES # (AUTO) 0.7 K/uL (0.1-1.0); MONOCYTES % (AUTO) 9.5 % (2.0-9.0); NEUTROPHILS # (AUTO) 5.7 K/uL (1.8-7.7); NEUTROPHILS % (AUTO) 79.7 % (40.0-70.0); PLATELET COUNT (AUTO) 301 K/uL (150-450); RED BLOOD CELL COUNT(AUTO) 4.78 MIL/uL (4.50-5.90)
[2017-09-21 12:51] VITALS: BP 133/93
[2017-09-21] MEDS: CALCIUM ACETATE 667 MG CAPSULE PO SCH ×2 (14:23→18:28)
[2017-09-21 16:16] VITALS: BP 146/76
[2017-09-21 16:53] LABS: PLATELET MORPHOLOGY COMMENT NORMAL
[2017-09-21] MEDS: MORPHINE SULFATE 2 MG/ML SYRINGE IVP PRN ×2 (17:32→23:33)
[2017-09-21] MEDS ORDERED: GuaiFENesin [SUGAR-FREE] 200 MG/10 ML SOLUTION UDCUP PO PRN (18:45)
[2017-09-21 19:54] VITALS: BP 146/72
[2017-09-21] MEDS ORDERED: LIDOCAINE HCL/PF 1% 2 ML VIAL INJ ONE (21:44)
[2017-09-21] MEDS ORDERED: DiphenhydrAMINE HCL 50 MG/ML VIAL INJ ONE (21:44)
[2017-09-21 23:30] VITALS: BP 152/93
[2017-09-22 04:31] VITALS: BP 146/94
[2017-09-22] MEDS: MORPHINE SULFATE 2 MG/ML SYRINGE IVP PRN ×3 (04:43→22:58)
[2017-09-22 07:02] VITALS: BP 112/56
[2017-09-22] MEDS: PANTOPRAZOLE SODIUM 40 MG DR TABLET PO SCH (09:12)
[2017-09-22] MEDS: CALCIUM ACETATE 667 MG CAPSULE PO SCH ×3 (09:12→18:17)
[2017-09-22] MEDS: VITAMIN B COMP/VIT C/FOLIC ACID CAPSULE PO SCH (09:12)
[2017-09-22] MEDS: ASPIRIN 81 MG EC TABLET PO SCH (09:12)
[2017-09-22] MEDS: DOCUSATE SODIUM 100 MG CAPSULE PO SCH ×2 (09:12→20:47)
[2017-09-22] MEDS: HEPARIN SODIUM,PORCINE 5,000 UNITS/ML VIAL SQ SCH ×3 (09:13→23:09)
[2017-09-22 09:20] LABS: BASOPHILS % (AUTO) 0.2 % (0.0-2.0); EOSINOPHILS % (AUTO) 0.3 % (1.0-6.0); HEMATOCRIT 44.9 % (41-53); HEMOGLOBIN 14.4 g/dL (13.5-17.5); LYMPHOCYTES # (AUTO) 0.7 K/uL (1.0-4.8); LYMPHOCYTES % (AUTO) 6.8 % (22.0-44.0); MEAN CORPUSCULAR HEMOGLOBIN 29.7 pg (26.0-34.0); MEAN CORPUSCULAR HGB CONC 32.1 G/dL (31.0-37.0); MEAN CORPUSCULAR VOLUME 92 fL (80-100); MONOCYTES # (AUTO) 0.8 K/uL (0.1-1.0); MONOCYTES % (AUTO) 7.7 % (2.0-9.0); RED BLOOD CELL COUNT(AUTO) 4.86 MIL/uL (4.50-5.90); RED CELL DISTRIBUTION WIDTH 20.1 % (11.5-14.5)
[2017-09-22 09:34] LABS: CALCIUM, TOTAL 9.4 mg/dL (8.8-10.5); CREATININE 7.19 mg/dL (0.60-1.30); MAGNESIUM 2.6 mg/dL (1.80-2.40); PHOSPHORUS 7.2 mg/dL (2.5-4.9); POTASSIUM 4.9 mmol/L (3.5-5.1)
[2017-09-22 10:42] LABS: PLATELET COUNT (AUTO) 288 K/uL (150-450)
[2017-09-22 11:06] VITALS: BP 132/80
[2017-09-22 14:52] VITALS: BP 138/72
[2017-09-22 23:21] VITALS: BP 139/95
[2017-09-23] MEDS: MORPHINE SULFATE 2 MG/ML SYRINGE IVP PRN ×4 (03:17→22:29)
[2017-09-23 04:46] VITALS: BP 141/111
[2017-09-23 07:30] LABS: BASOPHILS % (AUTO) 0.4 % (0.0-2.0); EOSINOPHILS % (AUTO) 1.4 % (1.0-6.0); HEMATOCRIT 45.3 % (41-53); HEMOGLOBIN 14.7 g/dL (13.5-17.5); LYMPHOCYTES # (AUTO) 0.8 K/uL (1.0-4.8); LYMPHOCYTES % (AUTO) 9.9 % (22.0-44.0); MEAN CORPUSCULAR HEMOGLOBIN 30.2 pg (26.0-34.0); MEAN CORPUSCULAR HGB CONC 32.4 G/dL (31.0-37.0); MEAN CORPUSCULAR VOLUME 93 fL (80-100); MONOCYTES # (AUTO) 0.7 K/uL (0.1-1.0); MONOCYTES % (AUTO) 8.7 % (2.0-9.0); NEUTROPHILS # (AUTO) 6.4 K/uL (1.8-7.7); NEUTROPHILS % (AUTO) 79.6 % (40.0-70.0); PLATELET COUNT (AUTO) 251 K/uL (150-450); RED BLOOD CELL COUNT(AUTO) 4.85 MIL/uL (4.50-5.90); RED CELL DISTRIBUTION WIDTH 20.3 % (11.5-14.5)
[2017-09-23 07:38] LABS: CALCIUM, TOTAL 9.1 mg/dL (8.8-10.5); CREATININE 8.26 mg/dL (0.60-1.30); POTASSIUM 4.9 mmol/L (3.5-5.1)
[2017-09-23] MEDS: CALCIUM ACETATE 667 MG CAPSULE PO SCH ×3 (09:00→18:34)
[2017-09-23] MEDS: PANTOPRAZOLE SODIUM 40 MG DR TABLET PO SCH (09:00)
[2017-09-23] MEDS: HEPARIN SODIUM,PORCINE 5,000 UNITS/ML VIAL SQ SCH ×2 (09:00→18:34)
[2017-09-23] MEDS: DOCUSATE SODIUM 100 MG CAPSULE PO SCH ×2 (09:01→21:05)
[2017-09-23] MEDS: VITAMIN B COMP/VIT C/FOLIC ACID CAPSULE PO SCH (09:01)
[2017-09-23] MEDS: ASPIRIN 81 MG EC TABLET PO SCH (09:01)
[2017-09-23 11:35] VITALS: BP 135/98
[2017-09-23 15:50] VITALS: BP 141/92
[2017-09-23 20:07] VITALS: BP 163/107
[2017-09-23 21:12] VITALS: BP 159/105
[2017-09-23] MEDS: ZOLPIDEM TARTRATE 5 MG TABLET PO PRN (22:30)
[2017-09-23 23:35] VITALS: BP 157/107
[2017-09-24] MEDS: HEPARIN SODIUM,PORCINE 5,000 UNITS/ML VIAL SQ SCH ×4 (01:48→23:58)
[2017-09-24 03:25] VITALS: BP 154/108
[2017-09-24] MEDS: MORPHINE SULFATE 2 MG/ML SYRINGE IVP PRN ×5 (03:25→21:35)
[2017-09-24 08:00] VITALS: BP 147/100
[2017-09-24] MEDS: VITAMIN B COMP/VIT C/FOLIC ACID CAPSULE PO SCH (08:12)
[2017-09-24] MEDS: DOCUSATE SODIUM 100 MG CAPSULE PO SCH ×2 (08:13→21:34)
[2017-09-24] MEDS: PANTOPRAZOLE SODIUM 40 MG DR TABLET PO SCH (08:13)
[2017-09-24] MEDS: ASPIRIN 81 MG EC TABLET PO SCH (08:13)
[2017-09-24] MEDS: CALCIUM ACETATE 667 MG CAPSULE PO SCH ×2 (08:13→11:39)
[2017-09-24] MEDS ORDERED: PANTOPRAZOLE SODIUM 40 MG DR TABLET PO SCH (09:00)
[2017-09-24 12:23] VITALS: BP 183/127
[2017-09-24] MEDS: AmLODIPine BESYLATE 10 MG TABLET PO SCH (12:54)
[2017-09-24 16:21] VITALS: BP 141/84
[2017-09-24 19:13] VITALS: BP 181/94
[2017-09-24] MEDS: SEVELAMER CARBONATE 800 MG TABLET PO SCH (20:01)
[2017-09-24] MEDS: CINACALCET HCL 30 MG TABLET PO SCH (20:01)
[2017-09-24] MEDS: HYDROCODONE/ACETAMINOPHEN 5-325 MG TABLET PO PRN (23:58)
[2017-09-24] MEDS: ZOLPIDEM TARTRATE 5 MG TABLET PO PRN (23:58)
[2017-09-25] MEDS: MORPHINE SULFATE 2 MG/ML SYRINGE IVP PRN ×4 (01:40→22:14)
[2017-09-25 01:44] VITALS: BP 149/105
[2017-09-25 05:42] VITALS: BP 150/108
[2017-09-25 07:05] LABS: BASOPHILS # (AUTO) 0.05 K/uL (0.00-0.20); BASOPHILS % (AUTO) 0.7 % (0.0-2.0); EOSINOPHILS # (AUTO) 0.11 K/uL (0.00-0.70); EOSINOPHILS % (AUTO) 1.51 % (1.0-6.0); HEMATOCRIT 44.8 % (41-53); HEMOGLOBIN 14.3 g/dL (13.5-17.5); LYMPHOCYTES # (AUTO) 0.9 K/uL (1.0-4.8); LYMPHOCYTES % (AUTO) 12.4 % (22.0-44.0); MEAN CORPUSCULAR HEMOGLOBIN 29.8 pg (26.0-34.0); MEAN CORPUSCULAR HGB CONC 31.8 G/dL (31.0-37.0); MEAN CORPUSCULAR VOLUME 94 fL (80-100); MONOCYTES # (AUTO) 0.5 K/uL (0.1-1.0); MONOCYTES % (AUTO) 6.7 % (2.0-9.0); NEUTROPHILS # (AUTO) 5.8 K/uL (1.8-7.7); NEUTROPHILS % (AUTO) 78.7 % (40.0-70.0); PLATELET COUNT (AUTO) 259 K/uL (150-450); RED BLOOD CELL COUNT(AUTO) 4.79 MIL/uL (4.50-5.90); RED CELL DISTRIBUTION WIDTH 20.2 % (11.5-14.5)
[2017-09-25 07:30] VITALS: BP 169/101
[2017-09-25 07:33] LABS: CALCIUM, TOTAL 9.1 mg/dL (8.8-10.5); CREATININE 7.3 mg/dL (0.60-1.30); POTASSIUM 5.7 mmol/L (3.5-5.1)
[2017-09-25] MEDS: PANTOPRAZOLE SODIUM 40 MG DR TABLET PO SCH (08:14)
[2017-09-25] MEDS: AmLODIPine BESYLATE 10 MG TABLET PO SCH (08:14)
[2017-09-25] MEDS: ASPIRIN 81 MG EC TABLET PO SCH (08:15)
[2017-09-25] MEDS: HEPARIN SODIUM,PORCINE 5,000 UNITS/ML VIAL SQ SCH ×2 (08:15→17:20)
[2017-09-25] MEDS: SEVELAMER CARBONATE 800 MG TABLET PO SCH ×3 (08:16→17:20)
[2017-09-25] MEDS: VITAMIN B COMP/VIT C/FOLIC ACID CAPSULE PO SCH (08:16)
[2017-09-25] MEDS: DOCUSATE SODIUM 100 MG CAPSULE PO SCH ×2 (08:16→19:52)
[2017-09-25] MEDS: HYDROCODONE/ACETAMINOPHEN 5-325 MG TABLET PO PRN ×2 (08:46→17:21)
[2017-09-25 15:00] VITALS: BP 146/97
[2017-09-25] MEDS: CINACALCET HCL 30 MG TABLET PO SCH (17:20)
[2017-09-25] MEDS: ONDANSETRON HCL 4 MG/2 ML VIAL IVP PRN (19:52)
[2017-09-25 20:25] VITALS: BP 164/96
[2017-09-25] MEDS ORDERED: DiphenhydrAMINE HCL 50 MG/ML VIAL IM ONE (21:44)
[2017-09-25] MEDS ORDERED: LIDOCAINE HCL/PF 1% 2 ML VIAL INJ ONE (21:44)
[2017-09-25 23:52] VITALS: BP 176/76
[2017-09-26] MEDS: HEPARIN SODIUM,PORCINE 5,000 UNITS/ML VIAL SQ SCH ×3 (00:23→17:02)
[2017-09-26] MEDS: HYDROCODONE/ACETAMINOPHEN 5-325 MG TABLET PO PRN ×2 (00:28→09:35)
[2017-09-26] MEDS: ONDANSETRON HCL 4 MG/2 ML VIAL IVP PRN ×2 (02:15→18:27)
[2017-09-26 06:45] VITALS: BP 145/104
[2017-09-26] MEDS: MORPHINE SULFATE 2 MG/ML SYRINGE IVP PRN ×3 (06:50→20:24)
[2017-09-26 07:38] LABS: CALCIUM, TOTAL 8.8 mg/dL (8.8-10.5); CREATININE 5.92 mg/dL (0.60-1.30); MAGNESIUM 2.4 mg/dL (1.80-2.40); POTASSIUM 4.9 mmol/L (3.5-5.1)
[2017-09-26 08:04] LABS: BASOPHILS % (AUTO) 0.4 % (0.0-2.0); EOSINOPHILS % (AUTO) 1.5 % (1.0-6.0); HEMOGLOBIN 14.3 g/dL (13.5-17.5); LYMPHOCYTES # (AUTO) 0.7 K/uL (1.0-4.8); LYMPHOCYTES % (AUTO) 9.5 % (22.0-44.0); MEAN CORPUSCULAR HEMOGLOBIN 29.9 pg (26.0-34.0); MEAN CORPUSCULAR HGB CONC 31.8 G/dL (31.0-37.0); MEAN CORPUSCULAR VOLUME 94 fL (80-100); MONOCYTES # (AUTO) 0.6 K/uL (0.1-1.0); MONOCYTES % (AUTO) 7.8 % (2.0-9.0); NEUTROPHILS # (AUTO) 5.9 K/uL (1.8-7.7); NEUTROPHILS % (AUTO) 80.8 % (40.0-70.0); PLATELET COUNT (AUTO) 266 K/uL (150-450); RED BLOOD CELL COUNT(AUTO) 4.78 MIL/uL (4.50-5.90)
[2017-09-26 08:16] VITALS: BP 139/86
[2017-09-26] MEDS: VITAMIN B COMP/VIT C/FOLIC ACID CAPSULE PO SCH (08:42)
[2017-09-26] MEDS: DOCUSATE SODIUM 100 MG CAPSULE PO SCH ×2 (08:42→20:25)
[2017-09-26] MEDS: AmLODIPine BESYLATE 10 MG TABLET PO SCH (08:42)
[2017-09-26] MEDS: SEVELAMER CARBONATE 800 MG TABLET PO SCH ×3 (08:42→17:03)
[2017-09-26] MEDS: PANTOPRAZOLE SODIUM 40 MG DR TABLET PO SCH (08:42)
[2017-09-26] MEDS: ASPIRIN 81 MG EC TABLET PO SCH (08:42)
[2017-09-26 12:12] VITALS: BP 137/96
[2017-09-26] MEDS: CINACALCET HCL 30 MG TABLET PO SCH (17:03)
[2017-09-26 20:28] VITALS: BP 135/90
[2017-09-26] MEDS ORDERED: CINA30 PO (20:28)
[2017-09-26] MEDS ORDERED: SEVEC800 PO ×2 (20:32→20:33)
[2017-09-26] MEDS ORDERED: AMLO-512 PO (20:34)
[2017-09-26] MEDS ORDERED: FOLI1CAP2 PO (20:36)
== END 2017-09-26 21:45 | disposition home or self-care (01) | DRG 425 ==
LOC: EMS 17:34 → 5N 21:53 → 4E 09-23 20:37
PROVIDERS: ADMIT Internal Medicine; ATTEND Internal Medicine
PROC: 5A1D70Z Performance of Urinary Filtration, Intermittent, Less than 6 Hours Per Day (ICD-10-PCS; principal; 2017-09-21)
PROC: 5A1D70Z Performance of Urinary Filtration, Intermittent, Less than 6 Hours Per Day (ICD-10-PCS; 2017-09-23)
PROC: 5A1D70Z Performance of Urinary Filtration, Intermittent, Less than 6 Hours Per Day (ICD-10-PCS; 2017-09-25)
DX: E87.5 Hyperkalemia (principal); I13.2 Hypertensive heart and chronic kidney disease with heart failure and with stage 5 chronic kidney disease, or end stage renal disease; G82.20 Paraplegia, unspecified; N18.6 End stage renal disease; L03.115 Cellulitis of right lower limb; L03.116 Cellulitis of left lower limb; I50.9 Heart failure, unspecified; F12.90 Cannabis use, unspecified, uncomplicated; E83.39 Other disorders of phosphorus metabolism; F17.210 Nicotine dependence, cigarettes, uncomplicated; Z99.2 Dependence on renal dialysis; Z91.15 Patient's noncompliance with renal dialysis; Z91.018 Allergy to other foods; Z90.49 Acquired absence of other specified parts of digestive tract; Z93.3 Colostomy status
CPT/HCPCS: 83605; 83735; 83970; 84100; 87081; 90935; 93005; 96374; 96375; 97162; 99285; J0610; J1200; J1644; J1815; J2270; J2405; J3490; J7060

== ENCOUNTER 2017-10-10 18:03 | Emergency (ER) | payer OTHER ==
[~2017-10-10] VITALS: Ht 175.3 cm; Wt 84.1 kg
[~2017-10-10 18:03] MED LIST changes: +AMLO-512 PO; +CINA30 PO; -FOLI0.8T2 PO; +FOLI1CAP2 PO; -PANT40TA25 PO; +SEVEC800 PO
[2017-10-10] MEDS ORDERED: HYDR-305 PO (18:17)
[2017-10-10 19:04] LABS: HEMATOCRIT 40.7 % (41-53); HEMOGLOBIN 12.9 g/dL (13.5-17.5); MEAN CORPUSCULAR HEMOGLOBIN 29.5 pg (26.0-34.0); MEAN CORPUSCULAR HGB CONC 31.8 G/dL (31.0-37.0); MEAN CORPUSCULAR VOLUME 93 fL (80-100); PLATELET COUNT (AUTO) 233 K/uL (150-450); RED BLOOD CELL COUNT(AUTO) 4.38 MIL/uL (4.50-5.90); RED CELL DISTRIBUTION WIDTH 20.2 % (11.5-14.5)
[2017-10-10 19:17] LABS: CALCIUM, TOTAL 8.9 mg/dL (8.8-10.5); CREATININE 5.88 mg/dL (0.60-1.30); POTASSIUM 5.2 mmol/L (3.5-5.1)
[2017-10-10 19:23] LABS: ALBUMIN 2.9 g/dL (3.4-5.0); BILIRUBIN,TOTAL 1.4 mg/dL (0.1-1.0); TOTAL PROTEIN, SERUM 8.7 g/dL (6.4-8.2)
[2017-10-10 19:30] LABS: BAND NEUTROPHILS % (MANUAL) 2 % (1-5); BASOPHILS % (MANUAL) 1 % (0-2); EOSINOPHILS % (MANUAL) 1 % (1-6); LYMPHOCYTES % (MANUAL) 10 % (22-44); MONOCYTES % (MANUAL) 6 % (2-9); PLATELET MORPHOLOGY COMMENT NORMAL; REACTIVE LYMPHOCYTES 3 % (0-0); SEGMENTED NEUTROPHILS % 77 % (40-70)
[2017-10-10] MEDS ORDERED: HYDROmorphone 2 MG/ML SYRINGE IVP ONE (20:15)
[2017-10-10] MEDS ORDERED: DiphenhydrAMINE HCL 50 MG/ML VIAL IM ONE (20:15)
[2017-10-10] MEDS ORDERED: LIDOCAINE HCL/PF 1% 2 ML VIAL IM ONE (20:15)
[2017-10-10] MEDS ORDERED: CefTRIAXone SODIUM 1 GM/VIAL IM ONE (20:15)
[2017-10-10 21:02] VITALS: BP 142/81
== END 2017-10-10 21:14 | disposition home or self-care (01) ==
LOC: EMS 18:05
DX: N34.2 Other urethritis (principal); I11.0 Hypertensive heart disease with heart failure; I50.9 Heart failure, unspecified; F17.210 Nicotine dependence, cigarettes, uncomplicated; F12.90 Cannabis use, unspecified, uncomplicated; Z91.018 Allergy to other foods
CPT/HCPCS: 36415; 80053; 83690; 85025; 93005; 96372; 96374; 99285; J0696; J1170; J1200; J3490

== ENCOUNTER 2017-10-24 11:49 | Emergency (ER) | payer OTHER ==
[~2017-10-24] VITALS: Ht 175.3 cm; Wt 84.1 kg
[~2017-10-24 11:49] MED LIST changes: +HYDR-305 PO
[2017-10-24] MEDS ORDERED: CefTRIAXone SODIUM 1 GM/VIAL IM ONE (13:15)
[2017-10-24] MEDS ORDERED: LEVOFLOXACIN 250 MG TABLET PO ONE (13:15)
[2017-10-24] MEDS ORDERED: LIDOCAINE HCL/PF 1% 2 ML VIAL IM ONE (13:45)
[2017-10-24] MEDS ORDERED: DiphenhydrAMINE HCL 50 MG/ML VIAL IM ONE (14:00)
[2017-10-24] MEDS ORDERED: AmLODIPine BESYLATE 5 MG TABLET PO ONE (14:30)
[2017-10-24 15:05] VITALS: BP 136/90
== END 2017-10-24 15:10 | disposition home or self-care (01) ==
LOC: EMS 11:50
DX: G81.94 Hemiplegia, unspecified affecting left nondominant side (principal); N48.1 Balanitis; I13.2 Hypertensive heart and chronic kidney disease with heart failure and with stage 5 chronic kidney disease, or end stage renal disease; N18.6 End stage renal disease; I50.9 Heart failure, unspecified; F17.210 Nicotine dependence, cigarettes, uncomplicated; F12.90 Cannabis use, unspecified, uncomplicated; Z99.2 Dependence on renal dialysis; Z93.3 Colostomy status; Z48.00 Encounter for change or removal of nonsurgical wound dressing; Z91.018 Allergy to other foods
CPT/HCPCS: 96372; 99284; 99406; J0696; J1200; J3490

== ENCOUNTER 2017-11-14 12:23 | Emergency (ER) | payer OTHER ==
[~2017-11-14] VITALS: Ht 175.3 cm; Wt 81.8 kg
[2017-11-14] MEDS ORDERED: CefTRIAXone SODIUM 1 GM/VIAL IM ONE (18:00)
[2017-11-14] MEDS ORDERED: DiphenhydrAMINE HCL 25 MG CAPSULE PO ONE (18:00)
[2017-11-14] MEDS ORDERED: LIDOCAINE HCL/PF 1% 2 ML VIAL IM ONE (18:00)
[2017-11-14 18:20] VITALS: BP 141/98
[2017-11-14] MEDS ORDERED: TraMADol HCL 50 MG TABLET PO ONE (18:45)
== END 2017-11-14 19:00 | disposition left against medical advice (07) ==
LOC: EMS 12:25
DX: A54.01 Gonococcal cystitis and urethritis, unspecified (principal); A56.01 Chlamydial cystitis and urethritis; G82.20 Paraplegia, unspecified; I13.0 Hypertensive heart and chronic kidney disease with heart failure and stage 1 through stage 4 chronic kidney disease, or unspecified chronic kidney disease; I50.9 Heart failure, unspecified; N18.9 Chronic kidney disease, unspecified; Z79.82 Long term (current) use of aspirin; Z90.49 Acquired absence of other specified parts of digestive tract; Z99.2 Dependence on renal dialysis
CPT/HCPCS: 87070; 87491; 87591; 96372; 99284; J0696; J3490

== ENCOUNTER 2017-12-21 19:01 | Emergency (ER) | payer OTHER ==
[~2017-12-21] VITALS: Ht 172.7 cm; Wt 81.0 kg
[~2017-12-21 19:01] MED LIST changes: -HYDR-305 PO
[2017-12-21] MEDS ORDERED: CefTRIAXone SODIUM 1 GM in DEXTROSE 5%-WATER 10 ML IV ONE (21:45)
[2017-12-21] MEDS ORDERED: SODIUM CHLORIDE 0.9% 250 ML IV ONE (21:45)
[2017-12-21] MEDS ORDERED: FentaNYL CITRATE-PF 100 MCG/2 ML VIAL IVP ONE (21:45)
[2017-12-21] MEDS ORDERED: ONDANSETRON HCL 4 MG/2 ML VIAL IVP ONE (21:45)
[2017-12-21 22:26] LABS: BASOPHILS % (AUTO) 0.7 % (0.0-2.0); EOSINOPHILS % (AUTO) 0.5 % (1.0-6.0); HEMATOCRIT 43.4 % (41-53); HEMOGLOBIN 14.3 g/dL (13.5-17.5); LYMPHOCYTES # (AUTO) 0.5 K/uL (1.0-4.8); LYMPHOCYTES % (AUTO) 7.6 % (22.0-44.0); MEAN CORPUSCULAR HEMOGLOBIN 29.6 pg (26.0-34.0); MEAN CORPUSCULAR HGB CONC 32.9 G/dL (31.0-37.0); MEAN CORPUSCULAR VOLUME 90 fL (80-100); MONOCYTES # (AUTO) 0.8 K/uL (0.1-1.0); MONOCYTES % (AUTO) 11.4 % (2.0-9.0); NEUTROPHILS # (AUTO) 5.3 K/uL (1.8-7.7); NEUTROPHILS % (AUTO) 79.8 % (40.0-70.0); PLATELET COUNT (AUTO) 205 K/uL (150-450); RED BLOOD CELL COUNT(AUTO) 4.82 MIL/uL (4.50-5.90); RED CELL DISTRIBUTION WIDTH 19.8 % (11.5-14.5)
[2017-12-21 22:38] LABS: CREATININE 5.48 mg/dL (0.60-1.30); POTASSIUM 3.9 mmol/L (3.5-5.1)
[2017-12-21 22:44] LABS: ALBUMIN 3.3 g/dL (3.4-5.0); BILIRUBIN,TOTAL 1.6 mg/dL (0.1-1.0)
[2017-12-22] MEDS ORDERED: CefTRIAXone SODIUM 1 GM in DEXTROSE 5%-WATER 10 ML IV ONE (00:30)
[2017-12-22 01:07] LABS: APPEARANCE,URINE TURBID (CLEAR)
[2017-12-22 01:09] LABS: BACTERIA,URINE Many /HPF (None Seen); RBC,URINE >100 /HPF (0-2); WBC,URINE Full Field /HPF (0-5)
[2017-12-22] MEDS ORDERED: MORPHINE SULFATE 4 MG/ML SYRINGE IVP ONE (03:00)
[2017-12-22] MEDS ORDERED: ONDANSETRON HCL 4 MG/2 ML VIAL IVP ONE (03:00)
[2017-12-22] MEDS ORDERED: SODIUM CHLORIDE 0.9% 250 ML IV ONE (04:15)
[2017-12-22 04:27] LABS: BASOPHILS % (AUTO) 1.9 % (0.0-2.0); EOSINOPHILS % (AUTO) 1.1 % (1.0-6.0); HEMATOCRIT 45.1 % (41-53); HEMOGLOBIN 14.9 g/dL (13.5-17.5); LYMPHOCYTES # (AUTO) 0.6 K/uL (1.0-4.8); LYMPHOCYTES % (AUTO) 11.9 % (22.0-44.0); MEAN CORPUSCULAR HEMOGLOBIN 29.6 pg (26.0-34.0); MEAN CORPUSCULAR VOLUME 90 fL (80-100); MONOCYTES # (AUTO) 0.8 K/uL (0.1-1.0); MONOCYTES % (AUTO) 14.7 % (2.0-9.0); NEUTROPHILS # (AUTO) 3.8 K/uL (1.8-7.7); NEUTROPHILS % (AUTO) 70.4 % (40.0-70.0); PLATELET COUNT (AUTO) 213 K/uL (150-450); RED BLOOD CELL COUNT(AUTO) 5.03 MIL/uL (4.50-5.90)
[2017-12-22 06:37] VITALS: BP 116/68
== END 2017-12-22 07:09 | disposition home or self-care (01) ==
LOC: EMS 19:02
DX: N39.0 Urinary tract infection, site not specified (principal); I13.2 Hypertensive heart and chronic kidney disease with heart failure and with stage 5 chronic kidney disease, or end stage renal disease; N18.6 End stage renal disease; I50.9 Heart failure, unspecified; F12.90 Cannabis use, unspecified, uncomplicated; F17.210 Nicotine dependence, cigarettes, uncomplicated; Z99.2 Dependence on renal dialysis; Z79.82 Long term (current) use of aspirin; Z91.018 Allergy to other foods
CPT/HCPCS: 36415; 51702; 80053; 81001; 83605; 85025; 87040; 87086; 96361; 96374; 96375; 96376; 99284; J0696 ×2; J2270; J2405 ×2; J3010; J7050 ×2; J7060 ×2

== ENCOUNTER 2018-01-12 20:59 | Emergency (ER) | payer OTHER ==
[~2018-01-12] VITALS: Ht 175.3 cm; Wt 72.7 kg
[2018-01-12 22:30] VITALS: BP 142/89
[2018-01-12] MEDS ORDERED: AZITHROMYCIN 250 MG TABLET PO ONE (23:00)
[2018-01-12] MEDS ORDERED: MetroNIDAZOLE 500 MG TABLET PO ONE (23:00)
[2018-01-12] MEDS ORDERED: CefTRIAXone SODIUM 1 GM/VIAL IM ONE (23:00)
[2018-01-12] MEDS ORDERED: LIDOCAINE HCL/PF 1% 2 ML VIAL ONE (23:06)
[2018-01-12] MEDS ORDERED: LIDOCAINE HCL/PF 1% 2 ML VIAL IM ONE (23:15)
== END 2018-01-12 23:34 | disposition home or self-care (01) ==
LOC: EMS 21:00
DX: N34.2 Other urethritis (principal); I13.2 Hypertensive heart and chronic kidney disease with heart failure and with stage 5 chronic kidney disease, or end stage renal disease; N18.6 End stage renal disease; F17.210 Nicotine dependence, cigarettes, uncomplicated; F12.90 Cannabis use, unspecified, uncomplicated; Z99.2 Dependence on renal dialysis; Z91.018 Allergy to other foods; Z79.82 Long term (current) use of aspirin
CPT/HCPCS: 87086; 96372; 99284; J0696; J3490

== ENCOUNTER 2018-02-20 21:43 | Inpatient (IN) | payer OTHER ==
[~2018-02-20] VITALS: Ht 170.2 cm; Wt 78.7 kg
[2018-02-20] MEDS ORDERED: LOSA100T29 PO (21:54)
[2018-02-20] MEDS ORDERED: CARV6.2579 PO (21:54)
[2018-02-20 23:15] LABS: EOSINOPHILS % (AUTO) 1.9 % (1.0-6.0); HEMATOCRIT 38.7 % (41-53); LYMPHOCYTES # (AUTO) 0.9 K/uL (1.0-4.8); LYMPHOCYTES % (AUTO) 15.4 % (22.0-44.0); MEAN CORPUSCULAR HEMOGLOBIN 30.8 pg (26.0-34.0); MEAN CORPUSCULAR HGB CONC 33.6 G/dL (31.0-37.0); MEAN CORPUSCULAR VOLUME 91 fL (80-100); MONOCYTES # (AUTO) 0.7 K/uL (0.1-1.0); MONOCYTES % (AUTO) 12.3 % (2.0-9.0); NEUTROPHILS % (AUTO) 67.4 % (40.0-70.0); PLATELET COUNT (AUTO) 237 K/uL (150-450); RED BLOOD CELL COUNT(AUTO) 4.23 MIL/uL (4.50-5.90); RED CELL DISTRIBUTION WIDTH 21.5 % (11.5-14.5)
[2018-02-20 23:26] LABS: ANION GAP 14 mmol/L (8-16); CALCIUM, TOTAL 8.6 mg/dL (8.8-10.5); CARBON DIOXIDE 25 mmol/L (22-29); CHLORIDE 94 mmol/L (98-107); CREATININE 5.95 mg/dL (0.60-1.30); GLOMERULAR FILTR. RATE CALC 10 mL/min (>60); GLUCOSE,RANDOM 85 mg/dL (70-110); POTASSIUM 4.7 mmol/L (3.5-5.1); SODIUM SERUM 133 mmol/L (136-145); UREA NITROGEN, BLOOD 57 mg/dL (7-18)
[2018-02-20 23:32] LABS: ALANINE AMINOTRANSFERASE 28 U/L (12-78); ALBUMIN 3.3 g/dL (3.4-5.0); ALKALINE PHOSPHATASE 206 U/L (46-116); ASPARTATE AMINOTRANSFERASE 31 U/L (15-37); BILIRUBIN,TOTAL 1.2 mg/dL (0.1-1.0)
[2018-02-20 23:45] LABS: B-TYPE NATRIURETIC PEPTIDE > 5000 pg/mL (0-100)
[2018-02-21] VITALS (7 sets, daily range): BP systolic 140–170; BP diastolic 82–99
[2018-02-21] MEDS ORDERED: NITROGLYCERIN 2% (1 GM=INCH) PACKET TP ONE
[2018-02-21] MEDS ORDERED: ASPIRIN 325 MG TABLET PO ONE
[2018-02-21] MEDS ORDERED: FentaNYL CITRATE-PF 100 MCG/2 ML VIAL IVP ONE (00:15)
[2018-02-21] MEDS ORDERED: FUROSEMIDE 40 MG/4 ML VIAL IVP ONE (00:15)
[2018-02-21] MEDS ORDERED: ONDANSETRON HCL 4 MG/2 ML VIAL IVP ONE (00:15)
[2018-02-21] MEDS ORDERED: ACETAMINOPHEN 325 MG TABLET PO PRN ×2 (05:15)
[2018-02-21] MEDS ORDERED: 0.9% SODIUM CHLORIDE 10 ML SYRINGE IVP PRN ×2 (05:15)
[2018-02-21] MEDS ORDERED: ONDANSETRON HCL 4 MG/2 ML VIAL IVP PRN ×2 (05:15)
[2018-02-21] MEDS ORDERED: ALBUTEROL SULFATE 2.5 MG/0.5 ML NEB SOLUTION NEB PRN (05:15)
[2018-02-21] MEDS ORDERED: BISACODYL 10 MG RECTAL RECTAL SUPPOSITORY PR PRN (05:15)
[2018-02-21] MEDS ORDERED: IPRATROPIUM BROMIDE 0.5 MG/2.5 ML NEB SOLUTION NEB PRN (05:15)
[2018-02-21] MEDS: MORPHINE SULFATE 4 MG/ML SYRINGE IVP PRN ×3 (06:30→20:45)
[2018-02-21 07:10] LABS: BASOPHILS % (AUTO) 2.7 % (0.0-2.0); EOSINOPHILS % (AUTO) 1.6 % (1.0-6.0); HEMATOCRIT 35.9 % (41-53); LYMPHOCYTES # (AUTO) 0.8 K/uL (1.0-4.8); LYMPHOCYTES % (AUTO) 15.4 % (22.0-44.0); MEAN CORPUSCULAR HEMOGLOBIN 30.3 pg (26.0-34.0); MEAN CORPUSCULAR HGB CONC 33.4 G/dL (31.0-37.0); MEAN CORPUSCULAR VOLUME 91 fL (80-100); MONOCYTES # (AUTO) 0.9 K/uL (0.1-1.0); MONOCYTES % (AUTO) 16.2 % (2.0-9.0); NEUTROPHILS # (AUTO) 3.5 K/uL (1.8-7.7); NEUTROPHILS % (AUTO) 64.1 % (40.0-70.0); PLATELET COUNT (AUTO) 237 K/uL (150-450); RED BLOOD CELL COUNT(AUTO) 3.96 MIL/uL (4.50-5.90); RED CELL DISTRIBUTION WIDTH 21.4 % (11.5-14.5)
[2018-02-21 07:35] LABS: CALCIUM, TOTAL 8.1 mg/dL (8.8-10.5); CREATININE 6.24 mg/dL (0.60-1.30); POTASSIUM 4.3 mmol/L (3.5-5.1)
[2018-02-21 07:41] LABS: ALBUMIN 3.1 g/dL (3.4-5.0); BILIRUBIN,TOTAL 1.2 mg/dL (0.1-1.0); CHOL/HDL RATIO 4.7 (4.2-7.3); MAGNESIUM 2.4 mg/dL (1.80-2.40); TOTAL PROTEIN, SERUM 8.2 g/dL (6.4-8.2)
[2018-02-21] MEDS: VITAMIN B COMP/VIT C/FOLIC ACID CAPSULE PO SCH (08:31)
[2018-02-21] MEDS: AmLODIPine BESYLATE 10 MG TABLET PO SCH (08:32)
[2018-02-21] MEDS: PANTOPRAZOLE SODIUM 40 MG DR TABLET PO SCH (08:32)
[2018-02-21] MEDS: ASPIRIN 81 MG CHEWABLE TABLET PO SCH (08:32)
[2018-02-21] MEDS: SEVELAMER CARBONATE 800 MG TABLET PO SCH ×3 (08:32→18:37)
[2018-02-21] MEDS ORDERED: [UNRECOGNIZED DRUG - OTHER] PO SCH (09:00)
[2018-02-21] MEDS: HEPARIN SODIUM,PORCINE 5,000 UNITS/ML VIAL SQ SCH ×2 (09:21→20:45)
[2018-02-21] MEDS: LOSARTAN POTASSIUM 50 MG TABLET PO SCH (09:22)
[2018-02-21] MEDS: CARVEDILOL 6.25 MG TABLET PO SCH ×2 (10:06→20:44)
[2018-02-21] MEDS ORDERED: PENTETATE DTPA TC99M/MCL ISOTOPE 1 EA INJ INJ ONE (10:30)
[2018-02-21] MEDS ORDERED: MAA ALBUMIN AGGREGATED TC99M/UD<10MCL ISOTOPE 1 EA INJ INJ ONE (10:45)
[2018-02-21] MEDS: CINACALCET HCL 30 MG TABLET PO SCH (18:37)
[2018-02-21] MEDS ORDERED: DiphenhydrAMINE HCL 25 MG CAPSULE PO PRN (21:45)
[2018-02-22 04:56] VITALS: BP 131/87
[2018-02-22] MEDS: MORPHINE SULFATE 4 MG/ML SYRINGE IVP PRN ×3 (06:22→22:29)
[2018-02-22 06:27] LABS: BASOPHILS % (AUTO) 2.3 % (0.0-2.0); EOSINOPHILS % (AUTO) 5.9 % (1.0-6.0); HEMOGLOBIN 12.7 g/dL (13.5-17.5); LYMPHOCYTES # (AUTO) 0.9 K/uL (1.0-4.8); LYMPHOCYTES % (AUTO) 22.3 % (22.0-44.0); MEAN CORPUSCULAR HEMOGLOBIN 30.2 pg (26.0-34.0); MEAN CORPUSCULAR HGB CONC 33.3 G/dL (31.0-37.0); MEAN CORPUSCULAR VOLUME 91 fL (80-100); MONOCYTES # (AUTO) 0.6 K/uL (0.1-1.0); MONOCYTES % (AUTO) 13.9 % (2.0-9.0); NEUTROPHILS # (AUTO) 2.4 K/uL (1.8-7.7); NEUTROPHILS % (AUTO) 55.6 % (40.0-70.0); PLATELET COUNT (AUTO) 233 K/uL (150-450); RED BLOOD CELL COUNT(AUTO) 4.19 MIL/uL (4.50-5.90); RED CELL DISTRIBUTION WIDTH 21.3 % (11.5-14.5)
[2018-02-22 06:41] LABS: CALCIUM, TOTAL 7.7 mg/dL (8.8-10.5); CREATININE 7.23 mg/dL (0.60-1.30); POTASSIUM 4.4 mmol/L (3.5-5.1)
[2018-02-22 08:02] LABS: PLATELET MORPHOLOGY COMMENT GIANT PLTS PRESENT
[2018-02-22 08:30] VITALS: BP 135/81
[2018-02-22] MEDS: SEVELAMER CARBONATE 800 MG TABLET PO SCH ×4 (08:31→19:07)
[2018-02-22] MEDS: PANTOPRAZOLE SODIUM 40 MG DR TABLET PO SCH (08:31)
[2018-02-22] MEDS: ASPIRIN 81 MG CHEWABLE TABLET PO SCH (08:31)
[2018-02-22] MEDS: LOSARTAN POTASSIUM 50 MG TABLET PO SCH (09:00)
[2018-02-22] MEDS: HEPARIN SODIUM,PORCINE 5,000 UNITS/ML VIAL SQ SCH ×2 (09:00→22:30)
[2018-02-22] MEDS: VITAMIN B COMP/VIT C/FOLIC ACID CAPSULE PO SCH ×2 (09:00→19:10)
[2018-02-22] MEDS: CARVEDILOL 6.25 MG TABLET PO SCH ×2 (09:00→22:41)
[2018-02-22] MEDS: AmLODIPine BESYLATE 10 MG TABLET PO SCH ×2 (09:00→19:06)
[2018-02-22] MEDS ORDERED: LIDOCAINE HCL/PF 1% 2 ML VIAL INJ ONE (12:00)
[2018-02-22] MEDS ORDERED: DiphenhydrAMINE HCL 50 MG/ML VIAL IVP ONE ×2 (12:00→13:30)
[2018-02-22 12:23] VITALS: BP 131/77
[2018-02-22] MEDS ORDERED: DiphenhydrAMINE HCL 50 MG/ML VIAL IVP PRN (14:00)
[2018-02-22] MEDS ORDERED: MANNITOL 25%-12.5 GM/50 ML VIAL IVP PRN (14:00)
[2018-02-22 16:07] VITALS: BP 135/94
[2018-02-22] MEDS: CINACALCET HCL 30 MG TABLET PO SCH ×2 (18:00→19:06)
[2018-02-22 19:56] VITALS: BP 129/87
[2018-02-22 23:37] VITALS: BP 143/90
[2018-02-23] MEDS: MORPHINE SULFATE 4 MG/ML SYRINGE IVP PRN ×2 (04:15→08:41)
[2018-02-23 04:33] VITALS: BP 134/90
[2018-02-23 07:03] LABS: BASOPHILS % (AUTO) 1.8 % (0.0-2.0); EOSINOPHILS % (AUTO) 4.6 % (1.0-6.0); HEMATOCRIT 36.9 % (41-53); HEMOGLOBIN 12.3 g/dL (13.5-17.5); LYMPHOCYTES # (AUTO) 0.7 K/uL (1.0-4.8); LYMPHOCYTES % (AUTO) 15.4 % (22.0-44.0); MEAN CORPUSCULAR HEMOGLOBIN 30.3 pg (26.0-34.0); MEAN CORPUSCULAR HGB CONC 33.4 G/dL (31.0-37.0); MEAN CORPUSCULAR VOLUME 91 fL (80-100); MONOCYTES # (AUTO) 0.8 K/uL (0.1-1.0); MONOCYTES % (AUTO) 16.3 % (2.0-9.0); NEUTROPHILS # (AUTO) 2.9 K/uL (1.8-7.7); NEUTROPHILS % (AUTO) 61.9 % (40.0-70.0); PLATELET COUNT (AUTO) 243 K/uL (150-450); RED BLOOD CELL COUNT(AUTO) 4.07 MIL/uL (4.50-5.90); RED CELL DISTRIBUTION WIDTH 21.7 % (11.5-14.5)
[2018-02-23 07:15] LABS: CREATININE 5.7 mg/dL (0.60-1.30); POTASSIUM 3.9 mmol/L (3.5-5.1)
[2018-02-23 07:43] VITALS: BP 142/89
[2018-02-23] MEDS: SEVELAMER CARBONATE 800 MG TABLET PO SCH ×2 (08:41→12:00)
[2018-02-23] MEDS: AmLODIPine BESYLATE 10 MG TABLET PO SCH (08:42)
[2018-02-23] MEDS: CARVEDILOL 6.25 MG TABLET PO SCH (08:42)
[2018-02-23] MEDS: HEPARIN SODIUM,PORCINE 5,000 UNITS/ML VIAL SQ SCH (08:42)
[2018-02-23] MEDS: ASPIRIN 81 MG CHEWABLE TABLET PO SCH (08:42)
[2018-02-23] MEDS: LOSARTAN POTASSIUM 50 MG TABLET PO SCH (08:42)
[2018-02-23] MEDS: PANTOPRAZOLE SODIUM 40 MG DR TABLET PO SCH (08:42)
[2018-02-23] MEDS: VITAMIN B COMP/VIT C/FOLIC ACID CAPSULE PO SCH (08:42)
[2018-02-23 11:16] VITALS: BP 148/91
[2018-02-23 15:30] VITALS: BP 136/89
== END 2018-02-23 15:30 | disposition home or self-care (01) | DRG 194 ==
LOC: EMS 21:44 → 5N 23:58
PROVIDERS: ADMIT Internal Medicine; ATTEND Internal Medicine
PROC: 5A1D70Z Performance of Urinary Filtration, Intermittent, Less than 6 Hours Per Day (ICD-10-PCS; principal; 2018-02-22)
DX: I13.2 Hypertensive heart and chronic kidney disease with heart failure and with stage 5 chronic kidney disease, or end stage renal disease (principal); N18.6 End stage renal disease; G82.20 Paraplegia, unspecified; E44.0 Moderate protein-calorie malnutrition; I08.1 Rheumatic disorders of both mitral and tricuspid valves; E83.39 Other disorders of phosphorus metabolism; I50.43 Acute on chronic combined systolic (congestive) and diastolic (congestive) heart failure; D63.8 Anemia in other chronic diseases classified elsewhere; M54.9 Dorsalgia, unspecified; F12.90 Cannabis use, unspecified, uncomplicated; G89.29 Other chronic pain; I70.0 Atherosclerosis of aorta; L89.90 Pressure ulcer of unspecified site, unspecified stage; T24.001A Burn of unspecified degree of unspecified site of right lower limb, except ankle and foot, initial encounter; F17.210 Nicotine dependence, cigarettes, uncomplicated; Z91.15 Patient's noncompliance with renal dialysis; Z91.19 Patient's noncompliance with other medical treatment and regimen; Z59.0 Homelessness; Z93.3 Colostomy status; Z90.49 Acquired absence of other specified parts of digestive tract; Z99.2 Dependence on renal dialysis; Z99.3 Dependence on wheelchair; Z91.018 Allergy to other foods; Z79.899 Other long term (current) drug therapy; Z79.82 Long term (current) use of aspirin
CPT/HCPCS: 78582; 83735; 84100; 84145; 86738; 87081; 87340; 93005; 93306; 93970; 96374; 96375; 99285; A9539; A9540; J1200; J1644; J1940; J2270; J2405; J3010; J3490

== ENCOUNTER 2018-09-29 00:24 | Emergency (ER) | payer OTHER ==
[~2018-09-29] VITALS: Ht 175.3 cm; Wt 84.1 kg
[~2018-09-29 00:24] MED LIST changes: +CARV6.2579 PO; +LOSA100T58 PO
[2018-09-29] MEDS ORDERED: HEPA500041 SQ (00:49)
[2018-09-29] MEDS ORDERED: SUCR500T PO (00:52)
[2018-09-29] MEDS ORDERED: LANS30 PO (00:53)
[2018-09-29] MEDS ORDERED: GABA-531 PO (00:53)
[2018-09-29] MEDS ORDERED: LANT500 PO (00:54)
[2018-09-29] MEDS ORDERED: FOLI0.8T2 PO (00:55)
[2018-09-29] MEDS ORDERED: HYDROCODONE/ACETAMINOPHEN 5-325 MG TABLET PO ONE ×2 (02:45→03:15)
[2018-09-29 04:22] LABS: BASOPHILS % (AUTO) 1.1 % (0.0-2.0); EOSINOPHILS % (AUTO) 3.2 % (1.0-6.0); HEMATOCRIT 44.5 % (41-53); HEMOGLOBIN 14.7 g/dL (13.5-17.5); LYMPHOCYTES # (AUTO) 0.4 K/uL (1.0-4.8); LYMPHOCYTES % (AUTO) 5.8 % (22.0-44.0); MEAN CORPUSCULAR HEMOGLOBIN 30.7 pg (26.0-34.0); MEAN CORPUSCULAR VOLUME 93 fL (80-100); MONOCYTES # (AUTO) 0.8 K/uL (0.1-1.0); MONOCYTES % (AUTO) 10.2 % (2.0-9.0); NEUTROPHILS % (AUTO) 79.7 % (40.0-70.0); PLATELET COUNT (AUTO) 211 K/uL (150-450); RED BLOOD CELL COUNT(AUTO) 4.78 MIL/uL (4.50-5.90); RED CELL DISTRIBUTION WIDTH 20.2 % (11.5-14.5)
[2018-09-29 04:28] LABS: CALCIUM, TOTAL 7.9 mg/dL (8.8-10.5); CREATININE 8.25 mg/dL (0.60-1.30); POTASSIUM 4.2 mmol/L (3.5-5.1)
[2018-09-29 04:30] LABS: INR 1.2 (0.9-1.1); PROTHROMBIN TIME 12.6 SEC (9.4-11.6)
[2018-09-29 04:34] LABS: ALBUMIN 2.5 g/dL (3.4-5.0); BILIRUBIN,TOTAL 0.7 mg/dL (0.1-1.0); TOTAL PROTEIN, SERUM 8.2 g/dL (6.4-8.2)
[2018-09-29 09:05] VITALS: BP 142/87
== END 2018-09-29 09:07 | disposition home or self-care (01) ==
LOC: EMS 00:25
DX: I13.2 Hypertensive heart and chronic kidney disease with heart failure and with stage 5 chronic kidney disease, or end stage renal disease (principal); N18.6 End stage renal disease; I50.9 Heart failure, unspecified; F17.210 Nicotine dependence, cigarettes, uncomplicated; F12.90 Cannabis use, unspecified, uncomplicated; Z90.49 Acquired absence of other specified parts of digestive tract; Z99.2 Dependence on renal dialysis; Z91.018 Allergy to other foods; Z79.82 Long term (current) use of aspirin

== ENCOUNTER 2019-08-12 08:28 | Emergency (ER) | payer OTHER ==
[~2019-08-12] VITALS: Ht 170.2 cm; Wt 68.2 kg
[~2019-08-12 08:28] MED LIST changes: -AMLO-512 PO; +AMLO10TA7 PO; +FOLI0.8T2 PO; -FOLI1CAP2 PO; +GABA-531 PO; +HEPA500041 SQ; +LANS30 PO; +LANT500T7 PO; +SEVE800T17 PO; -SEVEC800 PO; +SUCR500T PO
[2019-08-12 08:30] VITALS: BP 151/99
== END 2019-08-12 10:09 | disposition left against medical advice (07) ==
LOC: EMS 08:32
DX: Z53.21 Procedure and treatment not carried out due to patient leaving prior to being seen by health care provider (principal)

== ENCOUNTER 2019-09-13 22:50 | Inpatient (IN) | payer OTHER ==
[~2019-09-13] VITALS: Ht 175.3 cm; Wt 92.2 kg
[2019-09-13 23:32] LABS: BASOPHILS % (AUTO) 1.5 % (0.0-2.0); EOSINOPHILS % (AUTO) 1.8 % (1.0-6.0); HEMATOCRIT 37.8 % (41-53); HEMOGLOBIN 12.5 g/dL (13.5-17.5); LYMPHOCYTES # (AUTO) 0.8 K/uL (1.0-4.8); LYMPHOCYTES % (AUTO) 10.6 % (22.0-44.0); MEAN CORPUSCULAR HEMOGLOBIN 32.2 pg (26.0-34.0); MEAN CORPUSCULAR VOLUME 98 fL (80-100); MONOCYTES # (AUTO) 0.8 K/uL (0.1-1.0); MONOCYTES % (AUTO) 11.2 % (2.0-9.0); NEUTROPHILS # (AUTO) 5.3 K/uL (1.8-7.7); NEUTROPHILS % (AUTO) 74.9 % (40.0-70.0); PLATELET COUNT (AUTO) 212 K/uL (150-450); RED BLOOD CELL COUNT(AUTO) 3.87 MIL/uL (4.50-5.90); RED CELL DISTRIBUTION WIDTH 17.2 % (11.5-14.5)
[2019-09-13 23:48] LABS: CALCIUM, TOTAL 9.2 mg/dL (8.8-10.5); CREATININE 15.3 mg/dL (0.60-1.30)
[2019-09-13 23:54] LABS: ALBUMIN 3.1 g/dL (3.4-5.0); BILIRUBIN,TOTAL 0.8 mg/dL (0.1-1.0); MAGNESIUM 3.1 mg/dL (1.80-2.40)
[2019-09-14] MEDS ORDERED: DiphenhydrAMINE HCL 25 MG CAPSULE PO ONE (01:00)
[2019-09-14] MEDS ORDERED: DiphenhydrAMINE HCL 50 MG/ML VIAL IM ONE ×2 (01:30→10:48)
[2019-09-14 02:24] VITALS: BP 156/100
[2019-09-14] MEDS ORDERED: 0.9% SODIUM CHLORIDE 10 ML SYRINGE IVP PRN ×2 (05:00)
[2019-09-14] MEDS ORDERED: ACETAMINOPHEN 325 MG TABLET PO PRN ×3 (05:00→11:30)
[2019-09-14] MEDS ORDERED: ONDANSETRON HCL 4 MG/2 ML VIAL IVP PRN ×3 (05:00→11:30)
[2019-09-14 07:39] VITALS: BP 160/95
[2019-09-14] MEDS ORDERED: SODIUM CHLORIDE 0.9% 1,000 ML ONE (10:04)
[2019-09-14] MEDS ORDERED: LIDOCAINE/PF 1% 2 ML VIAL IM ONE (10:48)
[2019-09-14] MEDS ORDERED: HEPA500018 SQ (11:29)
[2019-09-14] MEDS ORDERED: BISACODYL 10 MG RECTAL RECTAL SUPPOSITORY PR PRN (11:30)
[2019-09-14] MEDS ORDERED: ZOLPIDEM TARTRATE 5 MG TABLET PO PRN (11:30)
[2019-09-14] MEDS ORDERED: MAGNESIUM HYDROXIDE SUSPENSION 30 ML UDCUP PO PRN (11:30)
[2019-09-14 11:45] VITALS: BP 158/108
[2019-09-14] MEDS: LANTHANUM CARBONATE 500 MG CHEW TABLET PO SCH ×2 (14:02→18:25)
[2019-09-14] MEDS: SEVELAMER CARBONATE 800 MG TABLET PO SCH ×2 (14:02→18:24)
[2019-09-14] MEDS: MORPHINE SULFATE 2 MG/ML SYRINGE IVP PRN ×2 (14:10→21:22)
[2019-09-14] MEDS: GABAPENTIN 300 MG CAPSULE PO SCH ×2 (15:45→21:25)
[2019-09-14] MEDS: HEPARIN SODIUM,PORCINE 5,000 UNITS/ML VIAL SQ SCH (15:45)
[2019-09-14 16:12] VITALS: BP 182/116
[2019-09-14] MEDS: HYDROCODONE/ACETAMINOPHEN 5-325 MG TABLET PO PRN (16:16)
[2019-09-14] MEDS ORDERED: HydrALAZINE HCL 20 MG/ML VIAL IVP PRN (16:45)
[2019-09-14] MEDS: CINACALCET HCL 30 MG TABLET PO SCH (18:25)
[2019-09-14 19:52] VITALS: BP 153/118
[2019-09-14] MEDS: DOCUSATE SODIUM 100 MG CAPSULE PO SCH (21:00)
[2019-09-14] MEDS: CARVEDILOL 6.25 MG TABLET PO SCH (21:19)
[2019-09-15] VITALS (7 sets, daily range): BP systolic 118–160; BP diastolic 72–113
[2019-09-15] MEDS: MORPHINE SULFATE 2 MG/ML SYRINGE IVP PRN ×3 (03:44→21:25)
[2019-09-15 06:09] LABS: EOSINOPHILS % (AUTO) 3.2 % (1.0-6.0); HEMATOCRIT 39.4 % (41-53); HEMOGLOBIN 12.8 g/dL (13.5-17.5); LYMPHOCYTES # (AUTO) 0.9 K/uL (1.0-4.8); LYMPHOCYTES % (AUTO) 19.3 % (22.0-44.0); MEAN CORPUSCULAR HEMOGLOBIN 31.8 pg (26.0-34.0); MEAN CORPUSCULAR HGB CONC 32.5 G/dL (31.0-37.0); MEAN CORPUSCULAR VOLUME 98 fL (80-100); MONOCYTES # (AUTO) 0.5 K/uL (0.1-1.0); MONOCYTES % (AUTO) 11.2 % (2.0-9.0); NEUTROPHILS % (AUTO) 64.3 % (40.0-70.0); PLATELET COUNT (AUTO) 206 K/uL (150-450); RED BLOOD CELL COUNT(AUTO) 4.03 MIL/uL (4.50-5.90); RED CELL DISTRIBUTION WIDTH 17.1 % (11.5-14.5)
[2019-09-15 06:58] LABS: CALCIUM, TOTAL 8.9 mg/dL (8.8-10.5); CREATININE 11.8 mg/dL (0.60-1.30); POTASSIUM 4.6 mmol/L (3.5-5.1)
[2019-09-15] MEDS: VITAMIN B COMP/VIT C/FOLIC ACID CAPSULE PO SCH (08:04)
[2019-09-15] MEDS: SEVELAMER CARBONATE 800 MG TABLET PO SCH ×3 (08:04→18:51)
[2019-09-15] MEDS: CARVEDILOL 6.25 MG TABLET PO SCH (08:05)
[2019-09-15] MEDS: ASPIRIN 81 MG EC TABLET PO SCH (08:05)
[2019-09-15] MEDS: AmLODIPine BESYLATE 10 MG TABLET PO SCH (08:05)
[2019-09-15] MEDS: DOCUSATE SODIUM 100 MG CAPSULE PO SCH ×2 (08:05→21:00)
[2019-09-15] MEDS: PANTOPRAZOLE SODIUM 40 MG DR TABLET PO SCH (08:05)
[2019-09-15] MEDS: GABAPENTIN 300 MG CAPSULE PO SCH ×3 (08:06→21:22)
[2019-09-15] MEDS: HEPARIN SODIUM,PORCINE 5,000 UNITS/ML VIAL SQ SCH ×3 (08:06→16:00)
[2019-09-15] MEDS: LANTHANUM CARBONATE 500 MG CHEW TABLET PO SCH ×3 (09:34→18:51)
[2019-09-15] MEDS: MUPIROCIN CALCIUM 2% 22 GM OINTMENT NASAL SCH ×2 (17:00→21:21)
[2019-09-15] MEDS: CINACALCET HCL 30 MG TABLET PO SCH (18:51)
[2019-09-15] MEDS: CARVEDILOL 12.5 MG TABLET PO SCH (21:23)
[2019-09-16] MEDS: MORPHINE SULFATE 2 MG/ML SYRINGE IVP PRN ×3 (03:29→17:18)
[2019-09-16 05:57] VITALS: BP 153/90
[2019-09-16 07:27] LABS: BASOPHILS % (AUTO) 1.5 % (0.0-2.0); EOSINOPHILS % (AUTO) 4.4 % (1.0-6.0); HEMATOCRIT 37.9 % (41-53); HEMOGLOBIN 12.5 g/dL (13.5-17.5); LYMPHOCYTES # (AUTO) 0.9 K/uL (1.0-4.8); LYMPHOCYTES % (AUTO) 17.6 % (22.0-44.0); MEAN CORPUSCULAR HEMOGLOBIN 32.5 pg (26.0-34.0); MEAN CORPUSCULAR HGB CONC 33.1 G/dL (31.0-37.0); MEAN CORPUSCULAR VOLUME 98 fL (80-100); MONOCYTES # (AUTO) 0.9 K/uL (0.1-1.0); MONOCYTES % (AUTO) 17.5 % (2.0-9.0); PLATELET COUNT (AUTO) 220 K/uL (150-450); RED BLOOD CELL COUNT(AUTO) 3.87 MIL/uL (4.50-5.90); RED CELL DISTRIBUTION WIDTH 16.7 % (11.5-14.5)
[2019-09-16 07:30] LABS: CREATININE 8.09 mg/dL (0.60-1.30); POTASSIUM 4.4 mmol/L (3.5-5.1)
[2019-09-16] MEDS: LANTHANUM CARBONATE 500 MG CHEW TABLET PO SCH ×3 (08:12→18:10)
[2019-09-16] MEDS: SEVELAMER CARBONATE 800 MG TABLET PO SCH ×3 (08:12→18:10)
[2019-09-16] MEDS: DOCUSATE SODIUM 100 MG CAPSULE PO SCH ×2 (08:13→21:48)
[2019-09-16] MEDS: AmLODIPine BESYLATE 10 MG TABLET PO SCH (08:13)
[2019-09-16] MEDS: VITAMIN B COMP/VIT C/FOLIC ACID CAPSULE PO SCH (08:13)
[2019-09-16] MEDS: PANTOPRAZOLE SODIUM 40 MG DR TABLET PO SCH (08:13)
[2019-09-16] MEDS: CARVEDILOL 12.5 MG TABLET PO SCH ×2 (08:13→21:48)
[2019-09-16] MEDS: GABAPENTIN 300 MG CAPSULE PO SCH ×3 (08:13→21:48)
[2019-09-16] MEDS: ASPIRIN 81 MG EC TABLET PO SCH (08:14)
[2019-09-16] MEDS: HEPARIN SODIUM,PORCINE 5,000 UNITS/ML VIAL SQ SCH ×4 (08:17→23:27)
[2019-09-16 08:26] VITALS: BP 142/93
[2019-09-16] MEDS: CLINDAMYCIN HCL 300 MG CAPSULE PO SCH ×3 (12:53→21:49)
[2019-09-16] MEDS: CEPHALEXIN MONOHYDRATE 500 MG CAPSULE PO SCH (12:54)
[2019-09-16 15:55] VITALS: BP 120/79
[2019-09-16] MEDS: CINACALCET HCL 30 MG TABLET PO SCH (18:10)
[2019-09-16] MEDS: MUPIROCIN CALCIUM 2% 22 GM OINTMENT NASAL SCH ×2 (18:11→21:48)
[2019-09-16 20:34] VITALS: BP 129/72
[2019-09-17] VITALS (7 sets, daily range): BP systolic 123–152; BP diastolic 76–113
[2019-09-17] MEDS: MORPHINE SULFATE 2 MG/ML SYRINGE IVP PRN ×3 (01:20→23:26)
[2019-09-17 07:15] LABS: BASOPHILS % (AUTO) 1.8 % (0.0-2.0); EOSINOPHILS % (AUTO) 7.3 % (1.0-6.0); HEMATOCRIT 36.8 % (41-53); LYMPHOCYTES # (AUTO) 0.9 K/uL (1.0-4.8); LYMPHOCYTES % (AUTO) 20.1 % (22.0-44.0); MEAN CORPUSCULAR HEMOGLOBIN 32.1 pg (26.0-34.0); MEAN CORPUSCULAR HGB CONC 32.7 G/dL (31.0-37.0); MEAN CORPUSCULAR VOLUME 98 fL (80-100); MONOCYTES # (AUTO) 0.7 K/uL (0.1-1.0); MONOCYTES % (AUTO) 16.6 % (2.0-9.0); NEUTROPHILS # (AUTO) 2.3 K/uL (1.8-7.7); NEUTROPHILS % (AUTO) 54.2 % (40.0-70.0); PLATELET COUNT (AUTO) 206 K/uL (150-450); RED BLOOD CELL COUNT(AUTO) 3.76 MIL/uL (4.50-5.90); RED CELL DISTRIBUTION WIDTH 16.9 % (11.5-14.5)
[2019-09-17 07:23] LABS: CREATININE 9.37 mg/dL (0.60-1.30); POTASSIUM 4.9 mmol/L (3.5-5.1)
[2019-09-17 07:24] LABS: CALCIUM, TOTAL 8.4 mg/dL (8.8-10.5)
[2019-09-17] MEDS: VITAMIN B COMP/VIT C/FOLIC ACID CAPSULE PO SCH (08:15)
[2019-09-17] MEDS: HEPARIN SODIUM,PORCINE 5,000 UNITS/ML VIAL SQ SCH ×3 (08:15→23:22)
[2019-09-17] MEDS: AmLODIPine BESYLATE 10 MG TABLET PO SCH (08:15)
[2019-09-17] MEDS: ASPIRIN 81 MG EC TABLET PO SCH (08:15)
[2019-09-17] MEDS: PANTOPRAZOLE SODIUM 40 MG DR TABLET PO SCH (08:16)
[2019-09-17] MEDS: DOCUSATE SODIUM 100 MG CAPSULE PO SCH ×2 (08:16→23:21)
[2019-09-17] MEDS: CARVEDILOL 12.5 MG TABLET PO SCH ×2 (08:16→23:23)
[2019-09-17] MEDS: GABAPENTIN 300 MG CAPSULE PO SCH ×3 (08:16→23:22)
[2019-09-17] MEDS: CEPHALEXIN MONOHYDRATE 500 MG CAPSULE PO SCH (08:16)
[2019-09-17] MEDS: CLINDAMYCIN HCL 300 MG CAPSULE PO SCH ×3 (08:18→23:21)
[2019-09-17] MEDS: LANTHANUM CARBONATE 500 MG CHEW TABLET PO SCH ×3 (08:20→18:23)
[2019-09-17] MEDS: SEVELAMER CARBONATE 800 MG TABLET PO SCH ×3 (08:29→18:23)
[2019-09-17] MEDS ORDERED: MUPI22OI2 NASAL (13:19)
[2019-09-17] MEDS ORDERED: CEPH500 PO (13:19)
[2019-09-17] MEDS ORDERED: CLIN300C9 PO (13:19)
[2019-09-17] MEDS ORDERED: DiphenhydrAMINE HCL 50 MG/ML VIAL ONE (14:44)
[2019-09-17] MEDS ORDERED: DiphenhydrAMINE HCL 50 MG/ML VIAL IVP ONE ×3 (14:45→16:45)
[2019-09-17] MEDS: CINACALCET HCL 30 MG TABLET PO SCH (18:23)
[2019-09-17] MEDS: MUPIROCIN CALCIUM 2% 22 GM OINTMENT NASAL SCH (23:27)
[2019-09-18 04:24] VITALS: BP 141/80
[2019-09-18 08:09] VITALS: BP 117/84
[2019-09-18] MEDS: ASPIRIN 81 MG EC TABLET PO SCH (08:44)
[2019-09-18] MEDS: LANTHANUM CARBONATE 500 MG CHEW TABLET PO SCH ×2 (08:44→12:30)
[2019-09-18] MEDS: HEPARIN SODIUM,PORCINE 5,000 UNITS/ML VIAL SQ SCH ×2 (08:44→16:38)
[2019-09-18] MEDS: PANTOPRAZOLE SODIUM 40 MG DR TABLET PO SCH (08:45)
[2019-09-18] MEDS: CARVEDILOL 12.5 MG TABLET PO SCH (08:45)
[2019-09-18] MEDS: SEVELAMER CARBONATE 800 MG TABLET PO SCH ×2 (08:45→12:31)
[2019-09-18] MEDS: AmLODIPine BESYLATE 10 MG TABLET PO SCH (08:45)
[2019-09-18] MEDS: VITAMIN B COMP/VIT C/FOLIC ACID CAPSULE PO SCH (08:45)
[2019-09-18] MEDS: CLINDAMYCIN HCL 300 MG CAPSULE PO SCH ×2 (08:45→16:38)
[2019-09-18] MEDS: GABAPENTIN 300 MG CAPSULE PO SCH ×2 (08:45→16:38)
[2019-09-18] MEDS: CEPHALEXIN MONOHYDRATE 500 MG CAPSULE PO SCH (08:45)
[2019-09-18] MEDS: MORPHINE SULFATE 2 MG/ML SYRINGE IVP PRN ×2 (08:47→16:44)
[2019-09-18] MEDS: MUPIROCIN CALCIUM 2% 22 GM OINTMENT NASAL SCH ×2 (09:00→16:38)
[2019-09-18] MEDS: DOCUSATE SODIUM 100 MG CAPSULE PO SCH (09:00)
[2019-09-18 12:08] VITALS: BP 133/81
[2019-09-18] MEDS: HYDROCODONE/ACETAMINOPHEN 5-325 MG TABLET PO PRN (13:55)
[2019-09-18 16:59] VITALS: BP 127/82
== END 2019-09-18 17:40 | disposition home or self-care (01) | DRG 425 ==
LOC: EMS 22:52 → 5N 09-14 00:30
PROVIDERS: ADMIT Internal Medicine; ATTEND Internal Medicine
PROC: 5A1D70Z Performance of Urinary Filtration, Intermittent, Less than 6 Hours Per Day (ICD-10-PCS; principal; 2019-09-14)
PROC: 5A1D70Z Performance of Urinary Filtration, Intermittent, Less than 6 Hours Per Day (ICD-10-PCS; 2019-09-15)
PROC: 5A1D70Z Performance of Urinary Filtration, Intermittent, Less than 6 Hours Per Day (ICD-10-PCS; 2019-09-17)
DX: E87.70 Fluid overload, unspecified (principal); I13.2 Hypertensive heart and chronic kidney disease with heart failure and with stage 5 chronic kidney disease, or end stage renal disease; G82.20 Paraplegia, unspecified; N18.6 End stage renal disease; E83.41 Hypermagnesemia; L97.519 Non-pressure chronic ulcer of other part of right foot with unspecified severity; B95.62 Methicillin resistant Staphylococcus aureus infection as the cause of diseases classified elsewhere; B96.4 Proteus (mirabilis) (morganii) as the cause of diseases classified elsewhere; I50.31 Acute diastolic (congestive) heart failure; L97.919 Non-pressure chronic ulcer of unspecified part of right lower leg with unspecified severity; Z79.899 Other long term (current) drug therapy; Z87.440 Personal history of urinary (tract) infections; Z87.891 Personal history of nicotine dependence; Z90.49 Acquired absence of other specified parts of digestive tract; Z79.82 Long term (current) use of aspirin; Z91.15 Patient's noncompliance with renal dialysis; Z93.3 Colostomy status; Z99.2 Dependence on renal dialysis; Z91.018 Allergy to other foods
CPT/HCPCS: 83735; 87070; 87081; 87205; 87340; 87491; 87591; 93005; J0360; J1200; J1644; J2270; J2405; J3490; J7030

== ENCOUNTER 2019-09-26 17:42 | Inpatient (IN) | payer OTHER ==
[~2019-09-26] VITALS: Ht 175.3 cm; Wt 97.1 kg
[~2019-09-26 17:42] MED LIST changes: +CEPH500 PO; +CLIN300C9 PO; +HEPA500018 SQ; -HEPA500041 SQ; +MUPI22OI2 NASAL
[2019-09-26] MEDS ORDERED: LIDOCAINE/PF 1% 2 ML VIAL INJ ONE (17:50)
[2019-09-26] MEDS ORDERED: DiphenhydrAMINE HCL 50 MG/ML VIAL IVP ONE (17:50)
[2019-09-26] MEDS ORDERED: ALBUTEROL SULFATE 2.5 MG/0.5 ML NEB SOLUTION NEB ONE (18:45)
[2019-09-26] MEDS ORDERED: IPRATROPIUM BROMIDE 0.5 MG/2.5 ML NEB SOLUTION NEB ONE (18:45)
[2019-09-26] MEDS ORDERED: FUROSEMIDE 40 MG/4 ML VIAL IVP ONE (19:45)
[2019-09-26 19:51] LABS: BASOPHILS % (AUTO) 1.6 % (0.0-2.0); EOSINOPHILS % (AUTO) 6.2 % (1.0-6.0); HEMATOCRIT 34.3 % (41-53); HEMOGLOBIN 11.4 g/dL (13.5-17.5); LYMPHOCYTES # (AUTO) 0.6 K/uL (1.0-4.8); LYMPHOCYTES % (AUTO) 12.2 % (22.0-44.0); MEAN CORPUSCULAR HEMOGLOBIN 31.9 pg (26.0-34.0); MEAN CORPUSCULAR HGB CONC 33.1 G/dL (31.0-37.0); MEAN CORPUSCULAR VOLUME 96 fL (80-100); MONOCYTES # (AUTO) 0.6 K/uL (0.1-1.0); NEUTROPHILS # (AUTO) 3.1 K/uL (1.8-7.7); PLATELET COUNT (AUTO) 178 K/uL (150-450); RED BLOOD CELL COUNT(AUTO) 3.57 MIL/uL (4.50-5.90); RED CELL DISTRIBUTION WIDTH 18.5 % (11.5-14.5)
[2019-09-26 20:03] LABS: ANION GAP 11 mmol/L (8-16); CALCIUM, TOTAL 8.4 mg/dL (8.8-10.5); CARBON DIOXIDE 28 mmol/L (22-29); CHLORIDE 96 mmol/L (98-107); CREATININE 7.75 mg/dL (0.60-1.30); GLOMERULAR FILTR. RATE CALC 8 mL/min (>60); GLUCOSE,RANDOM 88 mg/dL (70-110); POTASSIUM 4.7 mmol/L (3.5-5.1); SODIUM SERUM 135 mmol/L (136-145); UREA NITROGEN, BLOOD 63 mg/dL (7-18)
[2019-09-26 20:10] LABS: ALANINE AMINOTRANSFERASE 15 U/L (12-78); ALBUMIN 2.9 g/dL (3.4-5.0); ALKALINE PHOSPHATASE 105 U/L (46-116); ASPARTATE AMINOTRANSFERASE 21 U/L (15-37); BILIRUBIN,TOTAL 0.5 mg/dL (0.1-1.0); TOTAL PROTEIN, SERUM 7.8 g/dL (6.4-8.2)
[2019-09-26 20:27] LABS: INR 1.2 (0.9-1.1); PROTHROMBIN TIME 12.3 SEC (9.4-11.6)
[2019-09-26 20:34] LABS: B-TYPE NATRIURETIC PEPTIDE > 5000 pg/mL (0-100)
[2019-09-26] MEDS ORDERED: ONDANSETRON HCL 4 MG/2 ML VIAL IVP ONE (20:45)
[2019-09-26] MEDS ORDERED: MORPHINE SULFATE 4 MG/ML SYRINGE IVP ONE (20:45)
[2019-09-26] MEDS ORDERED: ACETAMINOPHEN 325 MG TABLET PO PRN (21:00)
[2019-09-26] MEDS ORDERED: BISACODYL 10 MG RECTAL RECTAL SUPPOSITORY PR PRN (21:00)
[2019-09-26 21:05] LABS: CREATINE KINASE, TOTAL ONLY 40 U/L (39-308)
[2019-09-26] MEDS: HEPARIN SODIUM,PORCINE 5,000 UNITS/ML VIAL SQ SCH (21:37)
[2019-09-26] MEDS: DOCUSATE SODIUM 100 MG CAPSULE PO SCH (21:38)
[2019-09-26] MEDS: CARVEDILOL 6.25 MG TABLET PO SCH (21:38)
[2019-09-27] MEDS: HEPARIN SODIUM,PORCINE 5,000 UNITS/ML VIAL SQ SCH ×2 (08:21→21:41)
[2019-09-27] MEDS: CARVEDILOL 6.25 MG TABLET PO SCH ×2 (08:21→21:40)
[2019-09-27] MEDS: DOCUSATE SODIUM 100 MG CAPSULE PO SCH ×2 (08:21→21:00)
[2019-09-27] MEDS ORDERED: AZITHROMYCIN 250 MG TABLET PO ONE (08:30)
[2019-09-27] MEDS ORDERED: CefTRIAXone 1 GM/DEXTROSE 50 ML IV SCH (08:30)
[2019-09-27] MEDS ORDERED: ASPIRIN 81 MG CHEWABLE TABLET PO SCH (09:00)
[2019-09-27 10:15] VITALS: BP 189/101
[2019-09-27] MEDS ORDERED: GuaiFENesin/CODEINE [SUGAR FREE] 200-20MG/10 ML SYRUP UDCUP PO PRN (11:00)
[2019-09-27] MEDS ORDERED: HYDROmorphone 2 MG/ML SYRINGE IVP ONE (11:00)
[2019-09-27] MEDS: SEVELAMER CARBONATE 800 MG TABLET PO SCH ×2 (11:47→18:05)
[2019-09-27] MEDS: HydrALAZINE HCL 20 MG/ML VIAL IVP PRN ×2 (11:48→21:41)
[2019-09-27] MEDS: CLINDAMYCIN HCL 300 MG CAPSULE PO SCH ×3 (12:34→23:01)
[2019-09-27] MEDS: LANTHANUM CARBONATE 500 MG CHEW TABLET PO SCH ×2 (12:34→18:06)
[2019-09-27 13:00] VITALS: BP 149/99
[2019-09-27] MEDS: GABAPENTIN 300 MG CAPSULE PO SCH ×2 (15:29→21:40)
[2019-09-27 16:00] VITALS: BP 151/95
[2019-09-27] MEDS: CINACALCET HCL 30 MG TABLET PO SCH (18:06)
[2019-09-27] MEDS: HYDROCODONE/ACETAMINOPHEN 5-325 MG TABLET PO PRN (18:09)
[2019-09-27 19:54] VITALS: BP 186/88
[2019-09-27] MEDS: CEPHALEXIN MONOHYDRATE 500 MG CAPSULE PO SCH (21:40)
[2019-09-27] MEDS: ZOLPIDEM TARTRATE 5 MG TABLET PO PRN (22:50)
[2019-09-27 23:11] VITALS: BP 154/87
[2019-09-28] MEDS: HYDROCODONE/ACETAMINOPHEN 5-325 MG TABLET PO PRN ×3 (02:11→21:31)
[2019-09-28 05:13] VITALS: BP 154/83
[2019-09-28] MEDS: CLINDAMYCIN HCL 300 MG CAPSULE PO SCH ×4 (05:38→23:46)
[2019-09-28 07:35] VITALS: BP 159/101
[2019-09-28] MEDS ORDERED: SODIUM CHLORIDE 0.9% 2,000 ML ONE (07:38)
[2019-09-28] MEDS: SEVELAMER CARBONATE 800 MG TABLET PO SCH ×3 (08:18→17:57)
[2019-09-28] MEDS: ASPIRIN 81 MG EC TABLET PO SCH (08:18)
[2019-09-28] MEDS: LANTHANUM CARBONATE 500 MG CHEW TABLET PO SCH ×3 (08:18→17:57)
[2019-09-28] MEDS: DOCUSATE SODIUM 100 MG CAPSULE PO SCH ×2 (08:19→20:15)
[2019-09-28] MEDS: VITAMIN B COMP/VIT C/FOLIC ACID CAPSULE PO SCH (08:19)
[2019-09-28] MEDS: GABAPENTIN 300 MG CAPSULE PO SCH ×3 (08:19→20:15)
[2019-09-28] MEDS: HEPARIN SODIUM,PORCINE 5,000 UNITS/ML VIAL SQ SCH (08:19)
[2019-09-28] MEDS: CEPHALEXIN MONOHYDRATE 500 MG CAPSULE PO SCH ×2 (08:19→20:15)
[2019-09-28 08:44] LABS: INFLUENZA TYPE A NEGATIVE FOR TYPE A (NEGATIVE); INFLUENZA TYPE B NEGATIVE FOR TYPE B (NEGATIVE)
[2019-09-28] MEDS ORDERED: SODIUM CHLORIDE 0.9% 1,000 ML ONE ×2 (08:49→08:50)
[2019-09-28] MEDS: AmLODIPine BESYLATE 10 MG TABLET PO SCH (11:15)
[2019-09-28] MEDS: CARVEDILOL 6.25 MG TABLET PO SCH ×2 (11:15→20:15)
[2019-09-28 11:35] VITALS: BP 155/92
[2019-09-28 12:40] LABS: MAGNESIUM 1.9 mg/dL (1.80-2.40); PHOSPHORUS 4.2 mg/dL (2.5-4.9)
[2019-09-28] MEDS ORDERED: DIGOXIN 250 MCG/ML 2 ML AMP IVP ONE (14:15)
[2019-09-28] MEDS ORDERED: AMIODARONE HCL 150 MG in DEXTROSE 5%-WATER 97 ML IV ONE (14:20)
[2019-09-28] MEDS ORDERED: AMIODARONE HCL 360 MG in DEXTROSE 5%-WATER 242.8 ML IV ONE (14:30)
[2019-09-28] MEDS ORDERED: ALBUTEROL SULFATE 2.5 MG/0.5 ML NEB SOLUTION NEB PRN (14:30)
[2019-09-28] MEDS ORDERED: IPRATROPIUM BROMIDE 0.5 MG/2.5 ML NEB SOLUTION NEB PRN (14:30)
[2019-09-28] MEDS ORDERED: *CLINICAL-LEVOFLOXACIN IVPB DOSING CLINICAL ONE (14:30)
[2019-09-28] MEDS: APIXABAN 2.5 MG TABLET PO SCH ×2 (14:36→20:15)
[2019-09-28 16:15] VITALS: BP 151/91
[2019-09-28] MEDS: CINACALCET HCL 30 MG TABLET PO SCH (17:57)
[2019-09-28 19:19] VITALS: BP 148/98
[2019-09-28] MEDS ORDERED: AMIODARONE HCL 540 MG in DEXTROSE 5%-WATER 239.2 ML IV ONE (20:30)
[2019-09-28] MEDS: ZOLPIDEM TARTRATE 5 MG TABLET PO PRN (21:31)
[2019-09-28 23:14] VITALS: BP 153/87
[2019-09-29 04:24] VITALS: BP 159/92
[2019-09-29] MEDS: CLINDAMYCIN HCL 300 MG CAPSULE PO SCH ×3 (05:38→17:58)
[2019-09-29 07:43] VITALS: BP 148/92
[2019-09-29] MEDS: SEVELAMER CARBONATE 800 MG TABLET PO SCH ×4 (08:00→17:58)
[2019-09-29] MEDS: LANTHANUM CARBONATE 500 MG CHEW TABLET PO SCH ×4 (08:00→17:57)
[2019-09-29] MEDS: ASPIRIN 81 MG EC TABLET PO SCH (08:54)
[2019-09-29] MEDS: CARVEDILOL 6.25 MG TABLET PO SCH ×2 (08:55→20:25)
[2019-09-29] MEDS: DOCUSATE SODIUM 100 MG CAPSULE PO SCH ×2 (08:55→20:25)
[2019-09-29] MEDS: CEPHALEXIN MONOHYDRATE 500 MG CAPSULE PO SCH ×2 (08:55→20:25)
[2019-09-29] MEDS: APIXABAN 2.5 MG TABLET PO SCH ×2 (08:55→20:25)
[2019-09-29] MEDS: AmLODIPine BESYLATE 10 MG TABLET PO SCH (08:56)
[2019-09-29] MEDS: GABAPENTIN 300 MG CAPSULE PO SCH ×3 (08:56→20:24)
[2019-09-29] MEDS: VITAMIN B COMP/VIT C/FOLIC ACID CAPSULE PO SCH (08:56)
[2019-09-29 11:20] VITALS: BP 148/70
[2019-09-29] MEDS ORDERED: AMIODARONE HCL 750 MG in DEXTROSE 5%-WATER 485 ML IV SCH (15:30)
[2019-09-29] MEDS ORDERED: HYDROmorphone 2 MG/ML SYRINGE IVP ONE (15:30)
[2019-09-29 15:47] VITALS: BP 156/89
[2019-09-29] MEDS ORDERED: ONDANSETRON HCL 4 MG/2 ML VIAL IVP PRN (18:00)
[2019-09-29] MEDS: CINACALCET HCL 30 MG TABLET PO SCH (18:00)
[2019-09-29 19:42] VITALS: BP 171/89
[2019-09-29] MEDS: HYDROCODONE/ACETAMINOPHEN 5-325 MG TABLET PO PRN (20:24)
[2019-09-29] MEDS: AMIODARONE HCL 200 MG TABLET PO SCH (20:24)
[2019-09-29 23:56] VITALS: BP 150/97
[2019-09-30] MEDS: CLINDAMYCIN HCL 300 MG CAPSULE PO SCH ×5 (00:11→23:17)
[2019-09-30 04:34] VITALS: BP 157/68
[2019-09-30] MEDS: HYDROCODONE/ACETAMINOPHEN 5-325 MG TABLET PO PRN ×3 (05:06→20:31)
[2019-09-30] MEDS: VITAMIN B COMP/VIT C/FOLIC ACID CAPSULE PO SCH (07:53)
[2019-09-30] MEDS: DOCUSATE SODIUM 100 MG CAPSULE PO SCH ×2 (07:53→20:15)
[2019-09-30] MEDS: APIXABAN 2.5 MG TABLET PO SCH ×2 (07:53→20:32)
[2019-09-30] MEDS: GABAPENTIN 300 MG CAPSULE PO SCH ×3 (07:53→20:32)
[2019-09-30] MEDS: ASPIRIN 81 MG EC TABLET PO SCH (07:55)
[2019-09-30] MEDS: SEVELAMER CARBONATE 800 MG TABLET PO SCH ×3 (07:55→17:54)
[2019-09-30] MEDS: CEPHALEXIN MONOHYDRATE 500 MG CAPSULE PO SCH ×2 (07:55→20:31)
[2019-09-30] MEDS: LANTHANUM CARBONATE 500 MG CHEW TABLET PO SCH ×3 (07:56→17:54)
[2019-09-30 08:00] VITALS: BP 152/82
[2019-09-30] MEDS ORDERED: CEPH500 PO (11:50)
[2019-09-30] MEDS ORDERED: CLIN300C9 PO (11:50)
[2019-09-30] MEDS ORDERED: ISOS1TAB2 PO (11:50)
[2019-09-30] MEDS ORDERED: AMIO100T4 PO ×2 (11:50)
[2019-09-30] MEDS ORDERED: APIX2.5T PO (11:50)
[2019-09-30 12:15] VITALS: BP 172/89
[2019-09-30] MEDS: CARVEDILOL 6.25 MG TABLET PO SCH ×2 (13:08→20:32)
[2019-09-30] MEDS: AmLODIPine BESYLATE 10 MG TABLET PO SCH (13:08)
[2019-09-30] MEDS: AMIODARONE HCL 200 MG TABLET PO SCH ×2 (13:08→20:31)
[2019-09-30 16:20] VITALS: BP 151/79
[2019-09-30] MEDS ORDERED: LIDOCAINE/PF 1% 2 ML VIAL INJ ONE (16:52)
[2019-09-30] MEDS ORDERED: DiphenhydrAMINE HCL 50 MG/ML VIAL IVP ONE (16:52)
[2019-09-30] MEDS: CINACALCET HCL 30 MG TABLET PO SCH (17:52)
[2019-09-30] MEDS: ISOSORB DINIT/HYDRALAZINE HCL 20-37.5 MG TABLET PO SCH ×2 (17:52→20:32)
[2019-09-30 20:37] VITALS: BP 125/98
[2019-09-30] MEDS: ZOLPIDEM TARTRATE 5 MG TABLET PO PRN (20:37)
[2019-09-30] MEDS ORDERED: DiphenhydrAMINE HCL 25 MG CAPSULE PO PRN (21:30)
[2019-10-01 01:05] VITALS: BP 142/83
[2019-10-01 04:30] VITALS: BP 136/78
[2019-10-01] MEDS: CLINDAMYCIN HCL 300 MG CAPSULE PO SCH ×2 (06:00→12:16)
[2019-10-01 06:38] LABS: BASOPHILS % (AUTO) 1.2 % (0.0-2.0); EOSINOPHILS % (AUTO) 5.3 % (1.0-6.0); HEMATOCRIT 33.4 % (41-53); HEMOGLOBIN 11.1 g/dL (13.5-17.5); LYMPHOCYTES # (AUTO) 0.8 K/uL (1.0-4.8); LYMPHOCYTES % (AUTO) 14.8 % (22.0-44.0); MEAN CORPUSCULAR HEMOGLOBIN 32.1 pg (26.0-34.0); MEAN CORPUSCULAR HGB CONC 33.2 G/dL (31.0-37.0); MEAN CORPUSCULAR VOLUME 97 fL (80-100); MONOCYTES # (AUTO) 0.5 K/uL (0.1-1.0); MONOCYTES % (AUTO) 8.2 % (2.0-9.0); NEUTROPHILS % (AUTO) 70.5 % (40.0-70.0); PLATELET COUNT (AUTO) 170 K/uL (150-450); RED BLOOD CELL COUNT(AUTO) 3.46 MIL/uL (4.50-5.90); RED CELL DISTRIBUTION WIDTH 17.8 % (11.5-14.5)
[2019-10-01 07:03] LABS: ALBUMIN 2.7 g/dL (3.4-5.0); BILIRUBIN,TOTAL 0.4 mg/dL (0.1-1.0); CALCIUM, TOTAL 7.8 mg/dL (8.8-10.5); CREATININE 5.11 mg/dL (0.60-1.30); POTASSIUM 5.6 mmol/L (3.5-5.1); TOTAL PROTEIN, SERUM 7.5 g/dL (6.4-8.2)
[2019-10-01 07:13] VITALS: BP 132/71
[2019-10-01] MEDS: APIXABAN 2.5 MG TABLET PO SCH (08:14)
[2019-10-01] MEDS: SEVELAMER CARBONATE 800 MG TABLET PO SCH ×2 (08:14→12:16)
[2019-10-01] MEDS: GABAPENTIN 300 MG CAPSULE PO SCH (08:14)
[2019-10-01] MEDS: CARVEDILOL 6.25 MG TABLET PO SCH (08:14)
[2019-10-01] MEDS: VITAMIN B COMP/VIT C/FOLIC ACID CAPSULE PO SCH (08:14)
[2019-10-01] MEDS: AMIODARONE HCL 200 MG TABLET PO SCH (08:14)
[2019-10-01] MEDS: AmLODIPine BESYLATE 10 MG TABLET PO SCH (08:14)
[2019-10-01] MEDS: CEPHALEXIN MONOHYDRATE 500 MG CAPSULE PO SCH (08:15)
[2019-10-01] MEDS: LANTHANUM CARBONATE 500 MG CHEW TABLET PO SCH ×2 (08:16→12:17)
[2019-10-01] MEDS: ISOSORB DINIT/HYDRALAZINE HCL 20-37.5 MG TABLET PO SCH (08:16)
[2019-10-01] MEDS: DOCUSATE SODIUM 100 MG CAPSULE PO SCH (08:17)
[2019-10-01] MEDS: HYDROCODONE/ACETAMINOPHEN 5-325 MG TABLET PO PRN (08:25)
[2019-10-01 11:24] VITALS: BP 134/80
[2019-10-01] MEDS ORDERED: SODIUM POLYSTYRENE SULFONATE 15 GM/60 ML SUSPENSION BOTTLE PO ONE (12:30)
[2019-10-01] MEDS ORDERED: CARVEDILOL 12.5 MG TABLET PO SCH (21:00)
[2019-10-02] MEDS ORDERED: AmLODIPine BESYLATE 5 MG TABLET PO SCH (09:00)
[2019-10-02] MEDS ORDERED: AMIODARONE HCL 200 MG TABLET PO SCH (09:00)
== END 2019-10-01 14:30 | disposition home or self-care (01) | DRG 139 ==
LOC: EMS 17:49 → 5S 09-27 09:24
PROVIDERS: ADMIT Internal Medicine; ATTEND Internal Medicine
PROC: 5A1D70Z Performance of Urinary Filtration, Intermittent, Less than 6 Hours Per Day (ICD-10-PCS; principal; 2019-09-27)
PROC: 5A1D70Z Performance of Urinary Filtration, Intermittent, Less than 6 Hours Per Day (ICD-10-PCS; 2019-09-28)
PROC: 5A1D70Z Performance of Urinary Filtration, Intermittent, Less than 6 Hours Per Day (ICD-10-PCS; 2019-09-29)
DX: J18.9 Pneumonia, unspecified organism (principal); J96.01 Acute respiratory failure with hypoxia; I13.2 Hypertensive heart and chronic kidney disease with heart failure and with stage 5 chronic kidney disease, or end stage renal disease; I47.2 Ventricular tachycardia; I95.9 Hypotension, unspecified; N18.6 End stage renal disease; G82.20 Paraplegia, unspecified; E87.5 Hyperkalemia; I42.0 Dilated cardiomyopathy; F17.210 Nicotine dependence, cigarettes, uncomplicated; F12.90 Cannabis use, unspecified, uncomplicated; I50.41 Acute combined systolic (congestive) and diastolic (congestive) heart failure; L97.919 Non-pressure chronic ulcer of unspecified part of right lower leg with unspecified severity; I48.91 Unspecified atrial fibrillation; Z99.2 Dependence on renal dialysis; D63.1 Anemia in chronic kidney disease; I25.10 Atherosclerotic heart disease of native coronary artery without angina pectoris; E78.5 Hyperlipidemia, unspecified; G89.4 Chronic pain syndrome; J20.9 Acute bronchitis, unspecified; Z93.3 Colostomy status; Z90.49 Acquired absence of other specified parts of digestive tract; Z87.440 Personal history of urinary (tract) infections; Z86.14 Personal history of Methicillin resistant Staphylococcus aureus infection
CPT/HCPCS: 83735; 84100; 87081; 87340; 87804; 93005; 93306; 94060; 94640; 99291; J0282; J0360; J0696; J1160; J1170; J1200; J1644; J2270; J2405; J3490; J7030; J7060

== ENCOUNTER 2020-04-16 07:36 | Inpatient (IN) | payer OTHER ==
[~2020-04-16] VITALS: Ht 175.3 cm; Wt 101.0 kg
[~2020-04-16 07:36] MED LIST changes: +AMIO100T4 PO; +AMLO-258 PO; -AMLO10TA7 PO; +APIX2.5T PO; -CEPH500 PO; -CLIN300C9 PO; +GABA-1181 PO; -GABA-531 PO; -HEPA500018 SQ; +ISOS1TAB2 PO; -LANS30 PO; +LANS30CA56 PO; -LOSA100T58 PO; -MUPI22OI2 NASAL
[2020-04-16 08:48] LABS: BASOPHILS % (AUTO) 1.3 % (0.0-2.0); EOSINOPHILS % (AUTO) 0.6 % (1.0-6.0); HEMATOCRIT 30.8 % (41-53); HEMOGLOBIN 10.1 g/dL (13.5-17.5); LYMPHOCYTES # (AUTO) 0.3 K/uL (1.0-4.8); LYMPHOCYTES % (AUTO) 3.5 % (22.0-44.0); MEAN CORPUSCULAR HEMOGLOBIN 30.5 pg (26.0-34.0); MEAN CORPUSCULAR HGB CONC 32.7 G/dL (31.0-37.0); MEAN CORPUSCULAR VOLUME 93 fL (80-100); MONOCYTES # (AUTO) 0.5 K/uL (0.1-1.0); MONOCYTES % (AUTO) 5.9 % (2.0-9.0); PLATELET COUNT (AUTO) 271 K/uL (150-450); RED CELL DISTRIBUTION WIDTH 17.6 % (11.5-14.5)
[2020-04-16 08:49] LABS: NEUTROPHILS % (AUTO) 88.7 % (40.0-70.0)
[2020-04-16] MEDS ORDERED: FAMOTIDINE 10 MG/ML 2 ML VIAL IVP ONE (09:00)
[2020-04-16] MEDS ORDERED: CALCIUM GLUCONATE 0.465 MEQ/ML 10 ML VIAL IVP ONE (09:00)
[2020-04-16 09:24] LABS: ALBUMIN 3.1 g/dL (3.4-5.0); BILIRUBIN,TOTAL 1.1 mg/dL (0.1-1.0); CREATININE 12.64 mg/dL (0.60-1.30); TOTAL PROTEIN, SERUM 9.7 g/dL (6.4-8.2)
[2020-04-16] MEDS ORDERED: SODIUM BICARBONATE [ADULT] 8.4% 50 MEQ/50 ML SYRINGE IVP ONE (09:45)
[2020-04-16] MEDS ORDERED: INSULIN REGULAR, HUMAN 100 UNITS/ML IVP ONE (09:45)
[2020-04-16] MEDS ORDERED: DEXTROSE 50%-WATER 25 GM/50 ML SYRINGE IVP ONE ×2 (09:45)
[2020-04-16] MEDS ORDERED: DiphenhydrAMINE HCL 25 MG CAPSULE PO ONE (12:00)
[2020-04-16] MEDS ORDERED: ACETAMINOPHEN 325 MG TABLET PO PRN ×2 (12:30→16:00)
[2020-04-16] MEDS ORDERED: 0.9% SODIUM CHLORIDE 10 ML SYRINGE IVP PRN (12:30)
[2020-04-16] MEDS ORDERED: ONDANSETRON HCL 4 MG/2 ML VIAL IVP PRN ×2 (12:30→16:00)
[2020-04-16 15:13] LABS: GLUCOSE,POINT OF CARE 102 MG/DL (70-110)
[2020-04-16] MEDS ORDERED: ZOLPIDEM TARTRATE 5 MG TABLET PO PRN (16:00)
[2020-04-16] MEDS ORDERED: MORPHINE SULFATE 2 MG/ML SYRINGE IVP PRN (16:00)
[2020-04-16] MEDS ORDERED: BISACODYL 10 MG RECTAL RECTAL SUPPOSITORY PR PRN (16:00)
[2020-04-16] MEDS ORDERED: MAGNESIUM HYDROXIDE SUSPENSION 30 ML UDCUP PO PRN (16:00)
[2020-04-16] MEDS ORDERED: LIDOCAINE/PF 1% 2 ML VIAL IM ONE (16:24)
[2020-04-16] MEDS ORDERED: DiphenhydrAMINE HCL 50 MG/ML VIAL IVP ONE (16:24)
[2020-04-16] MEDS: HEPARIN SODIUM,PORCINE 5,000 UNITS/ML VIAL SQ SCH (16:27)
[2020-04-16 17:09] VITALS: BP 158/88
[2020-04-16] MEDS: GABAPENTIN 300 MG CAPSULE PO SCH ×2 (17:28→20:31)
[2020-04-16] MEDS: SEVELAMER CARBONATE 800 MG TABLET PO SCH (17:28)
[2020-04-16] MEDS: ISOSORB DINIT/HYDRALAZINE HCL 20-37.5 MG TABLET PO SCH ×2 (17:29→20:31)
[2020-04-16] MEDS: CINACALCET HCL 30 MG TABLET PO SCH (17:29)
[2020-04-16] MEDS: LANTHANUM CARBONATE 500 MG CHEW TABLET PO SCH (17:30)
[2020-04-16] MEDS: DOCUSATE SODIUM 100 MG CAPSULE PO SCH (20:31)
[2020-04-16] MEDS: CARVEDILOL 6.25 MG TABLET PO SCH (20:31)
[2020-04-16] MEDS: APIXABAN 2.5 MG TABLET PO SCH (20:31)
[2020-04-17] VITALS (7 sets, daily range): BP systolic 127–135; BP diastolic 66–90
[2020-04-17] MEDS: HEPARIN SODIUM,PORCINE 5,000 UNITS/ML VIAL SQ SCH ×3 (00:21→21:54)
[2020-04-17 07:36] LABS: ALBUMIN 2.4 g/dL (3.4-5.0); BILIRUBIN,TOTAL 0.7 mg/dL (0.1-1.0); CALCIUM, TOTAL 8.3 mg/dL (8.8-10.5); CREATININE 8.74 mg/dL (0.60-1.30); MAGNESIUM 2.6 mg/dL (1.80-2.40); POTASSIUM 3.6 mmol/L (3.5-5.1); TOTAL PROTEIN, SERUM 7.6 g/dL (6.4-8.2)
[2020-04-17] MEDS: HYDROCODONE/ACETAMINOPHEN 5-325 MG TABLET PO PRN ×3 (07:43→22:02)
[2020-04-17] MEDS: ASPIRIN 81 MG EC TABLET PO SCH (07:45)
[2020-04-17] MEDS: VITAMIN B COMP/VIT C/FOLIC ACID CAPSULE PO SCH (07:47)
[2020-04-17] MEDS: CARVEDILOL 6.25 MG TABLET PO SCH ×2 (07:47→21:54)
[2020-04-17] MEDS: APIXABAN 2.5 MG TABLET PO SCH ×2 (07:47→21:54)
[2020-04-17] MEDS: GABAPENTIN 300 MG CAPSULE PO SCH ×3 (07:47→21:54)
[2020-04-17] MEDS: AmLODIPine BESYLATE 10 MG TABLET PO SCH (07:47)
[2020-04-17] MEDS: ISOSORB DINIT/HYDRALAZINE HCL 20-37.5 MG TABLET PO SCH ×3 (07:48→21:54)
[2020-04-17] MEDS: PANTOPRAZOLE SODIUM 40 MG DR TABLET PO SCH (07:48)
[2020-04-17] MEDS: LANTHANUM CARBONATE 500 MG CHEW TABLET PO SCH ×3 (07:49→17:15)
[2020-04-17] MEDS: DOCUSATE SODIUM 100 MG CAPSULE PO SCH ×2 (07:55→21:54)
[2020-04-17 07:57] LABS: PHOSPHORUS 9.3 mg/dL (2.5-4.9)
[2020-04-17] MEDS: SEVELAMER CARBONATE 800 MG TABLET PO SCH ×3 (08:10→17:15)
[2020-04-17] MEDS ORDERED: ASPI-1111 PO (09:47)
[2020-04-17] MEDS ORDERED: AMIO200T68 PO (09:47)
[2020-04-17] MEDS ORDERED: CARV6 PO (09:47)
[2020-04-17] MEDS ORDERED: DiphenhydrAMINE HCL 50 MG/ML VIAL IVP ONE (12:00)
[2020-04-17] MEDS ORDERED: LIDOCAINE/PF 1% 2 ML VIAL INJ ONE (12:00)
[2020-04-17] MEDS ORDERED: LIDOCAINE/PF 1% 2 ML VIAL ID PRN (13:00)
[2020-04-17] MEDS ORDERED: DiphenhydrAMINE HCL 50 MG/ML VIAL IVP PRN (13:00)
[2020-04-17] MEDS: CINACALCET HCL 30 MG TABLET PO SCH (17:14)
[2020-04-18 06:06] VITALS: BP 129/64
[2020-04-18 08:04] VITALS: BP 134/78
[2020-04-18] MEDS: HEPARIN SODIUM,PORCINE 5,000 UNITS/ML VIAL SQ SCH (08:09)
[2020-04-18] MEDS: PANTOPRAZOLE SODIUM 40 MG DR TABLET PO SCH (08:10)
[2020-04-18] MEDS: VITAMIN B COMP/VIT C/FOLIC ACID CAPSULE PO SCH (08:10)
[2020-04-18] MEDS: APIXABAN 2.5 MG TABLET PO SCH ×2 (08:10→21:11)
[2020-04-18] MEDS: GABAPENTIN 300 MG CAPSULE PO SCH ×3 (08:10→21:11)
[2020-04-18] MEDS: ASPIRIN 81 MG EC TABLET PO SCH (08:10)
[2020-04-18] MEDS: SEVELAMER CARBONATE 800 MG TABLET PO SCH ×3 (08:11→17:01)
[2020-04-18] MEDS: LANTHANUM CARBONATE 500 MG CHEW TABLET PO SCH ×3 (08:11→17:01)
[2020-04-18] MEDS: DOCUSATE SODIUM 100 MG CAPSULE PO SCH ×2 (08:31→21:00)
[2020-04-18] MEDS: AmLODIPine BESYLATE 10 MG TABLET PO SCH (10:32)
[2020-04-18] MEDS: CARVEDILOL 6.25 MG TABLET PO SCH ×2 (10:32→21:11)
[2020-04-18] MEDS: ISOSORB DINIT/HYDRALAZINE HCL 20-37.5 MG TABLET PO SCH ×3 (10:33→21:11)
[2020-04-18 11:04] VITALS: BP 141/74
[2020-04-18 15:43] VITALS: BP 136/72
[2020-04-18] MEDS: CINACALCET HCL 30 MG TABLET PO SCH (17:01)
[2020-04-18 19:46] VITALS: BP 133/72
[2020-04-18] MEDS: HYDROCODONE/ACETAMINOPHEN 5-325 MG TABLET PO PRN (21:15)
[2020-04-18] MEDS ORDERED: DiphenhydrAMINE HCL 50 MG/ML VIAL IVP PRN (23:00)
[2020-04-18 23:55] VITALS: BP 127/68
[2020-04-19 03:21] VITALS: BP 123/65
[2020-04-19] MEDS: LANTHANUM CARBONATE 500 MG CHEW TABLET PO SCH (08:00)
[2020-04-19] MEDS: SEVELAMER CARBONATE 800 MG TABLET PO SCH (08:00)
[2020-04-19] MEDS: ASPIRIN 81 MG EC TABLET PO SCH (08:00)
[2020-04-19 08:11] VITALS: BP 122/66
[2020-04-19] MEDS: APIXABAN 2.5 MG TABLET PO SCH (09:00)
[2020-04-19] MEDS: CARVEDILOL 6.25 MG TABLET PO SCH (09:00)
[2020-04-19] MEDS: PANTOPRAZOLE SODIUM 40 MG DR TABLET PO SCH (09:00)
[2020-04-19] MEDS: AmLODIPine BESYLATE 10 MG TABLET PO SCH (09:00)
[2020-04-19] MEDS: GABAPENTIN 300 MG CAPSULE PO SCH (09:00)
[2020-04-19] MEDS: DOCUSATE SODIUM 100 MG CAPSULE PO SCH (09:00)
[2020-04-19] MEDS: VITAMIN B COMP/VIT C/FOLIC ACID CAPSULE PO SCH (09:00)
[2020-04-19] MEDS: ISOSORB DINIT/HYDRALAZINE HCL 20-37.5 MG TABLET PO SCH (09:00)
[2020-04-19 10:08] LABS: BASOPHILS % (AUTO) 1.6 % (0.0-2.0); EOSINOPHILS % (AUTO) 7.7 % (1.0-6.0); HEMATOCRIT 25.8 % (41-53); HEMOGLOBIN 8.7 g/dL (13.5-17.5); LYMPHOCYTES # (AUTO) 0.4 K/uL (1.0-4.8); LYMPHOCYTES % (AUTO) 8.1 % (22.0-44.0); MEAN CORPUSCULAR HEMOGLOBIN 31.4 pg (26.0-34.0); MEAN CORPUSCULAR HGB CONC 33.6 G/dL (31.0-37.0); MEAN CORPUSCULAR VOLUME 93 fL (80-100); MONOCYTES # (AUTO) 0.2 K/uL (0.1-1.0); MONOCYTES % (AUTO) 4.8 % (2.0-9.0); NEUTROPHILS # (AUTO) 3.9 K/uL (1.8-7.7); NEUTROPHILS % (AUTO) 77.8 % (40.0-70.0); PLATELET COUNT (AUTO) 193 K/uL (150-450); RED BLOOD CELL COUNT(AUTO) 2.76 MIL/uL (4.50-5.90)
[2020-04-19 10:18] LABS: CALCIUM, TOTAL 7.9 mg/dL (8.8-10.5); CREATININE 5.41 mg/dL (0.60-1.30); POTASSIUM 3.7 mmol/L (3.5-5.1)
[2020-04-19 11:12] VITALS: BP 141/75
[2020-04-19] MEDS ORDERED: DiphenhydrAMINE HCL 50 MG/ML VIAL IVP ONE (12:00)
[2020-04-19] MEDS ORDERED: OMEP10SU2 PO (15:27)
[2020-04-19] MEDS ORDERED: OMEP20 PO (15:27)
[2020-04-19 16:00] VITALS: BP 132/70
== END 2020-04-19 19:10 | disposition home or self-care (01) | DRG 425 ==
LOC: EMS 07:38 → AHU 12:32 → 5S 12:33
PROVIDERS: ADMIT Internal Medicine; ATTEND Internal Medicine
PROC: 5A1D70Z Performance of Urinary Filtration, Intermittent, Less than 6 Hours Per Day (ICD-10-PCS; principal; 2020-04-16)
PROC: 5A1D70Z Performance of Urinary Filtration, Intermittent, Less than 6 Hours Per Day (ICD-10-PCS; 2020-04-17)
PROC: 5A1D70Z Performance of Urinary Filtration, Intermittent, Less than 6 Hours Per Day (ICD-10-PCS; 2020-04-19)
DX: E87.5 Hyperkalemia (principal); I13.2 Hypertensive heart and chronic kidney disease with heart failure and with stage 5 chronic kidney disease, or end stage renal disease; I50.31 Acute diastolic (congestive) heart failure; N18.6 End stage renal disease; Z99.2 Dependence on renal dialysis; D64.9 Anemia, unspecified; I25.10 Atherosclerotic heart disease of native coronary artery without angina pectoris; Z99.3 Dependence on wheelchair; Z88.8 Allergy status to other drugs, medicaments and biological substances; E11.22 Type 2 diabetes mellitus with diabetic chronic kidney disease; Z90.49 Acquired absence of other specified parts of digestive tract; E87.70 Fluid overload, unspecified; L97.519 Non-pressure chronic ulcer of other part of right foot with unspecified severity; F17.200 Nicotine dependence, unspecified, uncomplicated; F12.90 Cannabis use, unspecified, uncomplicated; E87.1 Hypo-osmolality and hyponatremia; Z91.19 Patient's noncompliance with other medical treatment and regimen; Z91.15 Patient's noncompliance with renal dialysis; E11.51 Type 2 diabetes mellitus with diabetic peripheral angiopathy without gangrene; E11.40 Type 2 diabetes mellitus with diabetic neuropathy, unspecified; Z79.4 Long term (current) use of insulin
CPT/HCPCS: 70450; 83735; 84100; 84132; 87070; 87205; 87340; 93005; 99291; G0378; J0610; J1200; J1644; J3490